=== PATIENT | female | born 1955 | race Caucasian/White ===

== ENCOUNTER 2020-05-19 07:41 | Outpatient (CLI) | payer OTHER, MEDICARE, SELFPAY ==
--- NOTE | ~2020-05-19 | MM_ITS ---
EXAMINATION: MM screening génesis BI w clint HISTORY: Screening mammogram TECHNIQUE: Craniocaudal and mediolateral oblique 3-D tomosynthesis images were obtained and synthetic 2-D images were generated. Bilateral rotated lateral cc views. CAD analysis was submitted and interp reted. COMPARISON: 01/22/2019 diagnostic left digital mammogram and limited left breast ultrasound 01/08/2019, 11/02/2017 bilateral digital screening mammogram examinations BREAST PARENCHYMAL COMPOSITION: The breasts are heterogeneously dense, which may obscure small masses . FINDINGS: Occasional bilateral punctate benign microcalcifications. Stable mild fibroglandular asymme try. There is no evidence of suspicious mass, calcification, or architectural distortion to suggest m alignancy in either breast. There has been no suspicious interval change. IMPRESSION: 1. No mammographic evidence of malignancy. 2. Recommend routine screening mammography in one year. BI-RADS Category 2: Benign finding(s). Reviewed, dictated and finalized at location A.
== END 2020-05-19 07:42 | disposition home or self-care (01) ==
LOC: ANHIMG 07:49
PROVIDERS: PCP Family Medicine; Visit Provider Obstetrics & Gynecology
DX: Z12.31 Encounter for screening mammogram for malignant neoplasm of breast (principal)
CPT/HCPCS: 77063; 77067

== ENCOUNTER 2020-07-17 08:47 | Outpatient (CLI) | payer OTHER, MEDICARE, SELFPAY ==
[2020-07-17 20:00] LABS: SARS-CoV-2 RNA PCR Negative
== END 2020-07-17 08:48 | disposition home or self-care (01) ==
LOC: ANHCOVIDDT 08:48
PROVIDERS: PCP Family Medicine; Visit Provider Internal Medicine Gastroenterology
DX: Z01.812 Encounter for preprocedural laboratory examination (principal); Z20.828 Contact with and (suspected) exposure to other viral communicable diseases
CPT/HCPCS: 87635; C9803; U0003

== ENCOUNTER 2020-07-20 02:09 | Day surgery (SDC) | payer OTHER, MEDICARE, SELFPAY ==
[2020-07-17 09:14] VITALS: BMI 20.5
--- NOTE | 2020-07-20 08:49 | WPDANESEPPF ---
Anes - Initial Pre Proc Eval Procedure: Operation Date: 07/20/20 10:30 Proposed Procedures p Screening Colonoscopy - Jeremias Porras MD Date/Time: 07/20/20 08:49 Surgeon: Jeremias Porras MD Pre Op Diagnosis: neoplasm screening Patient Data Age: 65 Gender: F Height: 1.57 m Weight: 51 kg Allergies Allergy/AdvReac Type Severity Reaction Status Date / Time clindamycin Allergy Intermediate Nausea and Verified 07/20/20 09:30 Vomiting Sulfa (Sulfonamide Allergy Intermediate Nausea and Verified 07/20/20 09:30 Antibiotics) Vomiting Home Medications Medication Instructions Recorded Confirmed Type estradiol-norethindrone acet 1 1 tablet PO DAILY 01/27/20 07/17/20 History mg-0.5 mg tablet fentanyl 12 mcg/hr transdermal 1 patch TRANSDERM Q72H 01/27/20 07/17/20 History patch hydroxychloroquine 200 mg tablet 200 mg PO BID 01/27/20 07/17/20 History peg 3350 240 gram-electrolytes 240 ml PO Q10M #4000 ml 05/28/20 07/14/20 Rx 22.72 gram-6.72 g-5.84 g powdr for soln sodium,potassium,mag sulfates 17.5 480 ml PO .COMPLEX #480 ml 05/29/20 07/14/20 Rx gram-3.13 gram-1.6 gram oral soln calcium citrate-vitamin D3 2 tablet PO DAILY 07/17/20 07/17/20 History [Citracal plus D] econazole 1 applic TOPICAL BID PRN 07/17/20 07/17/20 History loratadine-pseudoephedrine 1 tablet PO DAILY 07/17/20 07/17/20 History [Claritin-D 24 Hour] rizatriptan See Rx Instructions PO .COMPLEX PRN 07/17/20 07/17/20 History temazepam 30 mg PO HS 07/17/20 07/17/20 History trazodone 100 mg PO HS 07/17/20 07/17/20 History triamcinolone acetonide 1 applic TOPICAL BID PRN 07/17/20 07/17/20 History Patient hx anesthesia problems: none Family hx anesthesia problems: none PMFSH Past Medical History Medical History (Updated 07/20/20 @ 08:50 by Ananda Benedict MD) Anemia, unspecified BMI 21.0-21.9, adult Degenerative lumbar disc Dermatitis Elevated cholesterol Elevated vitamin B12 level Insomnia, unspecified Lesion of skin of face Mixed anxiety depressive disorder Mixed connective tissue disease Other migraine, not intractable, without status migrainosus Rheumatoid arthritis Scoliosis, unspecified Screen for colon cancer Seronegative rheumatoid arthritis Skin lesion of face Surgical History Surgical History History of section 1978, 1985, 1990 Hx of abdominoplasty 2006 S/P epidural steroid injection Family History Family History (Updated 07/08/20 @ 10:17 by Kirsten Rubio CMA) Father Hypertension Acute myocardial infarction, Onset Age: 84 Patient's father is Family history of heart disease in male family member before age 55 Mother Family history of diabetes mellitus in first degree relative Family history of congestive heart failure, Onset Age: 84 Lupus Sibling Acute myocardial infarction Heart disease Lupus Other Family history of lupus erythematosus Family history of type 2 diabetes mellitus Social History Social History (Updated 07/08/20 @ 10:18 by Kirsten Rubio CMA) Smoking status: Never smoker Alcohol intake: current Drinks per week: 3 Substance use: current Other substance usage details: CARD FOR Multigig 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
[2020-07-20 09:33] VITALS: BP 143/86; PULSE 106; RESP 16; TEMP 37.1; O2SAT 99; BMI 20.7
[2020-07-20] MEDS: LACTATED RINGERS 1,000 ML 150 ML IV CONT (09:43)
--- NOTE | 2020-07-20 10:42 | PM.HPGS ---
History of Present Illness History of Present Illness Consent: Risks, benefits, and alternatives have been discussed and questions answered. Patient agrees to proceed with procedure. Chief complaint: neoplasm screening Narrative: Santy Sethi is a 65 year old female with last colonoscopy 5 years ago. Review of Systems Constitutional: Constitutional: Denies headache(s) and Denies weakness Eyes: Eyes: Denies blurry vision ENT: Reports Normal hearing present, Denies headache(s) and Denies neck pain Cardiovascular: Cardiovascular: Denies chest pain and Denies dyspnea Respiratory: Respiratory: Denies dyspnea Gastrointestinal: Gastrointestinal: Reports no additional gastrointestinal complaints Genitourinary: Genitourinary: Denies dysuria Musculoskeletal: Musculoskeletal: Denies neck pain Integumentary/Breasts: Skin/Breast: Denies dry skin Neurologic: Reports Normal hearing present, Denies headache(s) and Denies weakness Psychiatric: Psychiatric: Denies anxiety Endocrine: Endocrine: Denies change in body appearance Hematologic/Lymphatic: Hematologic/Lymphatic: Denies easy bleeding Allergic/Immunologic: Allergic/Immunologic: Denies urticaria PMFSH Past Medical History Medical History (Updated 07/20/20 @ 08:50 by Ananda Benedict MD) Anemia, unspecified BMI 21.0-21.9, adult Degenerative lumbar disc Dermatitis Elevated cholesterol Elevated vitamin B12 level Insomnia, unspecified Lesion of skin of face Mixed anxiety depressive disorder Mixed connective tissue disease Other migraine, not intractable, without status migrainosus Rheumatoid arthritis Scoliosis, unspecified Screen for colon cancer Seronegative rheumatoid arthritis Skin lesion of face Surgical History Surgical History History of section 1978, 1985, 1990 Hx of abdominoplasty 2005 S/P epidural steroid injection Family History Family History (Updated 07/08/20 @ 10:17 by Kirsten Rubio CMA) Father Hypertension Acute myocardial infarction, Onset Age: 84 Patient's father is Family history of heart disease in male family member before age 55 Mother Family history of diabetes mellitus in first degree relative Family history of congestive heart failure, Onset Age: 84 Lupus Sibling Acute myocardial infarction Heart disease Lupus Other Family history of lupus erythematosus Family history of type 2 diabetes mellitus Social History Social History (Updated 07/08/20 @ 10:18 by Kirsten Rubio CMA) Smoking status: Never smoker Alcohol intake: current Drinks per week: 3 Substance use: current Other substance usage details: CARD FOR CBD 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 Gender identity (if verbalized by the patient): Female Spiritual care concerns: No Meds Home Medications and Allergies Home Medications Medication Instructions Recorded Confirmed Type estradiol-norethindrone acet 1 1 tablet PO DAILY 01/27/20 07/17/20 History mg-0.5 mg tablet fentanyl 12 mcg/hr transdermal 1 patch TRANSDERM Q72H 01/27/20 07/17/20 History patch hydroxychloroquine 200 mg tablet 200 mg PO BID 01/27/20 07/17/20 History peg 3350 240 gram-electrolytes 240 ml PO Q10M #4000 ml 05/28/20 07/14/20 Rx 22.72 gram-6.72 g-5.84 g powdr for soln sodium,potassium,mag sulfates 17.5 480 ml PO .COMPLEX #480 ml 05/29/20 07/14/20 Rx gram-3.13 gram-1.6 gram oral soln calcium citrate-vitamin D3 2 tablet PO DAILY 07/17/20 07/17/20 History [Citracal plus D] econazole 1 applic TOPICAL BID PRN 07/17/20 07/17/20 History loratadine-pseudoephedrine 1 tablet PO DAILY 07/17/20 07/17/20 History [Claritin-D 24 Hour] rizatriptan See Rx Instructions PO .COMPLEX PRN 07/17/20 07/17/20 History temazepam 30 mg PO HS 07/17/20 07/17/20 History trazodone 100 mg PO HS 07/17/20
[2020-07-20 11:06] VITALS: BP 133/80; PULSE 92; RESP 20; O2SAT 100
[2020-07-20 11:16] VITALS: BP 132/82; PULSE 89; RESP 18; O2SAT 100
[2020-07-20 11:26] VITALS: BP 128/68; PULSE 92; RESP 20; O2SAT 99
== END 2020-07-20 11:40 | disposition home or self-care (01) ==
PROVIDERS: PCP Family Medicine; Visit Provider Internal Medicine Gastroenterology
PROC: 0DJD8ZZ Inspection of Lower Intestinal Tract, Via Natural or Artificial Opening Endoscopic (ICD-10-PCS; CPT 45378; principal; 2020-07-20 10:30)
DX: Z12.11 Encounter for screening for malignant neoplasm of colon (principal); D12.2 Benign neoplasm of ascending colon; K64.8 Other hemorrhoids; M06.00 Rheumatoid arthritis without rheumatoid factor, unspecified site; E78.00 Pure hypercholesterolemia, unspecified; D64.9 Anemia, unspecified; F41.8 Other specified anxiety disorders; L94.8 Other specified localized connective tissue disorders
CPT/HCPCS: 45385; 87635; 88305; C9803; J2704; J7120; U0003

== ENCOUNTER → 2021-03-29 13:21 | Outpatient (CLI) | payer OTHER, MEDICARE, SELFPAY ==
--- NOTE | ~2021-03-29 | US_ITS ---
EXAMINATION: US thyroid DATE: 03/29/2021 13:36 INDICATION: Nontoxic single thyroid nodule. TECHNIQUE: Multiple ultrasound images of the thyroid were obtained. COMPARISON: None. FINDINGS: The right thyroid lobe measures 5.4 x 1.8 x 1.4 cm. The left thyroid lobe measures 3.8 x 1.1 x 1.1 c m. In the right thyroid lobe, there is a 2.3 cm mixed cystic and solid, hypoechoic, [id number]-fbba nodule with smooth margin without echogenic foci (TI-RADS TR3). In the right thyroid lobe, there is a 1.6 cm solid, hypoechoic, [id number]-[id number] nodule with smooth margin without echogenic foci (TR4) IMPRESSION: 1. Multinodular goiter. Ultrasound-guided fine-needle aspiration of the 1.6 cm right thyroid nodule i s recommended. Reviewed, dictated and finalized at location A. IMPRESSION: 1. Multinodular goiter. Ultrasound-guided fine-needle aspiration of the 1.6 cm right thyroid nodule is recommended.
== END ==
PROVIDERS: PCP Family Medicine; Visit Provider Family Medicine
DX: E04.2 Nontoxic multinodular goiter (principal)
CPT/HCPCS: 76536

== ENCOUNTER 2021-04-07 13:00 | Outpatient (CLI) | payer OTHER, MEDICARE, SELFPAY ==
--- NOTE | ~2021-04-07 | US_ITS ---
EXAMINATION: US FNA w image guidance DATE: 04/07/2021 14:08 INDICATION: Nontoxic multinodular goiter. TECHNIQUE: The procedure and its benefits and risks were discussed with the patient. Risks specifically discusse d included bleeding. The patient verbalized understanding of the risks and agreed to proceed. The nec k was prepped and draped in the usual sterile manner. 1% lidocaine was used for local anesthesia. 5 passes were made with a 25G needle into the lesion under ultrasound guidance. There were no immedia te complications. The patient understood to call the ordering physician for results after a week and a half and verbalized that understanding. FINDINGS: Grayscale ultrasound images demonstrate needles advanced into a 16 mm nodule in inferior right thyroi d lobe for biopsy. IMPRESSION: 1. Ultrasound-guided fine needle aspiration of a right thyroid nodule. Reviewed, dictated and finalized at location A.
== END 2021-04-07 13:01 | disposition home or self-care (01) ==
LOC: ANHIMG 13:07
PROVIDERS: PCP Family Medicine; Visit Provider Nurse Practitioner Family
DX: E04.2 Nontoxic multinodular goiter (principal)
CPT/HCPCS: 10005; 88173; 88305

== ENCOUNTER 2021-04-19 13:04 | Outpatient (CLI) | payer OTHER, MEDICARE, SELFPAY ==
--- NOTE | ~2021-04-19 | US_ITS ---
EXAMINATION: US FNA w image guidance DATE: 04/19/2021 13:52 INDICATION: Right thyroid nodule. TECHNIQUE: The procedure and its benefits and risks were discussed with the patient. Risks specifically discusse d included bleeding. The patient verbalized understanding of the risks and agreed to proceed. The nec k was prepped and draped in the usual sterile manner. 1% lidocaine was used for local anesthesia. 5 passes were made with a 25G needle into the lesion under ultrasound guidance. There were no immedia te complications. FINDINGS: Grayscale ultrasound images demonstrate needles advanced into a 1.5 cm hypoechoic nodule in right thy roid lobe for biopsy. IMPRESSION: 1. Ultrasound-guided fine needle aspiration of a right thyroid nodule. Reviewed, dictated and finalized at location A.
== END 2021-04-19 13:05 | disposition home or self-care (01) ==
PROVIDERS: PCP Family Medicine; Visit Provider Nurse Practitioner Family
DX: E04.2 Nontoxic multinodular goiter (principal)
CPT/HCPCS: 10005; 88173; 88305

== ENCOUNTER 2021-04-23 10:26 | Emergency (ER) | payer OTHER, MEDICARE, SELFPAY ==
--- NOTE | ~2021-04-23 | XR_ITS ---
EXAMINATION: XR chest 2V 04/23/2021 11:34 INDICATION: Chest pain. Tachycardia. PROCEDURE: 2 view chest COMPARISON: No prior studies for comparison. FINDINGS: The lungs are clear. The cardiomediastinal silhouette is within normal limits. There are no pleural effusions. There is no pneumothorax suspected. IMPRESSION: 1: NO ACUTE CARDIOPULMONARY DISEASE. Reviewed, dictated and finalized at location A.
--- NOTE | 2021-04-23 10:28 | ECG_ITS ---
Measurements Intervals [place] Rate: 85 P: 32 OH: 135 QRS: 47 QRSD: 89 T: 31 QT: 335 QTc: 399 Interpretive Statements SINUS RHYTHM BASELINE ARTIFACT- I, II, AVR, AVL NORMAL ECG Electronically Signed On 04-23-2021 10:42:21 CDT by Jean-Claude Ny D.O.
[2021-04-23 10:35] VITALS: BP 134/75; PULSE 133; RESP 16; TEMP 37.1; O2SAT 100
[2021-04-23 10:48] LABS: Basophils Absolute Auto 0.1 K/mm3 (0.0-0.1); Basophils Percent Auto 0.8 % (0.2-1.2); Eosinophils Absolute Auto 0.1 K/mm3 (0-0.3); Eosinophils Percent Auto 1.6 % (0-4.4); Hemoglobin 13.1 g/dL (12.0-15.0); Immature Granulocyte Absolute 0.03 K/mm3 (0.00-0.031); Immature Granulocyte Percent A 0.4 % (0-0.5); Lymphocytes Absolute Auto 0.98 K/mm3 (0.9-3.2); Lymphocytes Percent Auto 12.8 % (18.3-44.2); Mean Corpuscular HGB Conc 32.8 g/dl (32-36); Mean Corpuscular Hemoglobin 33.2 pg (26-34); Mean Corpuscular Volume 101.5 fl (80-100); Mean Platelet Volume 9.3 fl (7.4-10.4); Monocytes Absolute Auto 0.6 K/mm3 (0.1-0.6); Monocytes Percent Auto 7.8 % (2.6-8.5); Neutrophils Absolute Auto 5.9 K/mm3 (1.3-6.7); Neutrophils Percent Auto 76.6 % (45.5-73.1); Platelet Count Result 270 k/mm3 (150-375); Red Blood Count 3.94 M/mm3 (4.2-5.4); Red Cell Distribution Width 12.1 % (11.5-14.5); White Blood Count 7.7 K/mm3 (4.5-10.0)
[2021-04-23 11:02] LABS: INR 0.9; Partial Thromboplastin Time 26.9 SECONDS (22.3-36.8); Prothrombin Time 11.9 Seconds (11.1-14.7)
[2021-04-23 11:05] LABS: Anion Gap 8 mmol/L (8-16); Blood Urea Nitrogen 11 mg/dL (7-17); Calcium 9.7 mg/dL (8.4-10.2); Carbon Dioxide 28 mmol/L (22-30); Chloride 102 mmol/L (98-107); Estimated CRCL calculation 62 ml/min; Estimated Glomerular Filt Rate > 60; Glucose 97 mg/dL (65-110); Sodium 138 mmol/L (137-145)
[2021-04-23] MEDS: ASPIRIN 81 MG CHEWABLE TABLET 324 MG PO (11:08)
[2021-04-23 11:17] LABS: Troponin I < 0.012 ng/mL (0.000-0.034)
[2021-04-23 12:50] LABS: D Dimer < 0.22 ug/mL (<0.48)
--- NOTE | 2021-04-23 13:11 | ED.CHESTPAIN ---
HPI - Chest Pain General Chief Complaint: Chest Pain Stated Complaint: CP Time Seen by Provider: 04/23/21 11:26 History of Present Illness HPI narrative: Patient presents with chest pain that started last night around 10 PM. She monitor symptoms all night with became tired and went to bed she woke up and continued to have chest pain symptoms did not resolve she went to come to the ER for evaluation. Pain is on her bilateral chest there are no clear aggravating or alleviating symptoms. Is not associated with shortness of breath diaphoresis nausea or vomiting. She denies any lightheadedness denies any diarrhea fevers or cough. Denies any recent hospitalizations major surgeries or major trauma. Reports longstanding history of tachycardia and is asymptomatic. She also reports she is being worked up as an outpatient for a thyroid nodule which she has been worried about. Related Data Home Medications Medication Instructions Recorded Confirmed estradiol-norethindrone acet 1 1 tablet PO DAILY 01/27/20 03/18/21 mg-0.5 mg tablet fentanyl 12 mcg/hr transdermal 1 patch TRANSDERM Q72H 01/27/20 03/18/21 patch hydroxychloroquine 200 mg tablet 200 mg PO BID 01/27/20 03/18/21 calcium citrate-vitamin D3 2 tablet PO DAILY 07/17/20 03/18/21 [Citracal plus D] loratadine-pseudoephedrine 1 tablet PO DAILY 07/17/20 03/18/21 [Claritin-D 24 Hour] rizatriptan See Rx Instructions PO .COMPLEX PRN 07/17/20 03/18/21 triamcinolone acetonide 1 applic TOPICAL BID PRN 07/17/20 03/18/21 hydrocodone 5 mg-acetaminophen 325 1 tablet PO Q8H PRN 03/18/21 03/18/21 mg tablet Allergies Allergy/AdvReac Type Severity Reaction Status Date / Time clindamycin Allergy Intermediate Nausea and Verified 04/23/21 11:02 Vomiting Sulfa (Sulfonamide Allergy Intermediate Nausea and Verified 04/23/21 11:02 Antibiotics) Vomiting Review of Systems Review of Systems: CONSTITUTIONAL: Denies fever, chills, or sweats. EYES: Denies visual changes, redness, or discharge. ENT: Denies rhinorrhea, congestion, sore throat, or otalgia. CARDIOVASCULAR: Denies palpitations, or edema. RESPIRATORY: Denies cough or dyspnea. GASTROINTESTINAL: Denies abdominal pain, nausea, vomiting, or diarrhea. GENITOURINARY: Denies dysuria or hematuria. SKIN: Denies rash or itching. MUSCULOSKELETAL: Denies back pain, joint pain, or myalgia. NEUROLOGIC: Denies headache, numbness, dizziness, or weakness. PSYCHIATRIC: Denies anxiety or depression. All systems reviewed & are unremarkable except as noted in HPI and below PMFSH Past Medical History Medical History Anemia, unspecified BMI 21.0-21.9, adult Degenerative lumbar disc Dermatitis Elevated cholesterol Elevated vitamin B12 level Insomnia, unspecified Lesion of skin of face Low vitamin D level Mixed anxiety depressive disorder Mixed connective tissue disease Other migraine, not intractable, without status migrainosus Rheumatoid arthritis Scoliosis, unspecified Screen for colon cancer Seronegative rheumatoid arthritis Skin lesion of face Surgical History Surgical History History of section 1978, 1985, 1990 Hx of abdominoplasty 2005 S/P epidural steroid injection Family History Family History Father Hypertension Acute myocardial infarction, Onset Age: 84 Patient's father is Family history of heart disease in male family member before age 55 Mother Family history of diabetes mellitus in first degree relative Family history of congestive heart failure, Onset Age: 84 Lupus Sibling Acute myocardial infarction Heart disease Lupus Other Family history of lupus erythematosus Family history of type 2 diabetes mellitus Social History Social History (Reviewed 04/23/21 @ 13:12 by Bill Garvey
[2021-04-23] MEDS: SODIUM CHLORIDE 0.9% IV 1,000 ML 999 ML IV CONT (13:27)
[2021-04-23 14:45] LABS: Troponin I < 0.012 ng/mL (0.000-0.034)
--- NOTE | 2021-05-05 11:53 | PC.NURSE ---
LATE ENTRY This note is being entered to document information to the patient's record. The following information was omitted on [04/23/21], by [Eva powell RN]. NS infused [id number]
== END 2021-04-23 14:04 | disposition home or self-care (01) ==
PROVIDERS: Emergency Provider Emergency Medicine; PCP Family Medicine
DX: R00.0 Tachycardia, unspecified (principal); R07.9 Chest pain, unspecified; D64.9 Anemia, unspecified; E78.00 Pure hypercholesterolemia, unspecified; M35.1 Other overlap syndromes; M06.00 Rheumatoid arthritis without rheumatoid factor, unspecified site; Z87.891 Personal history of nicotine dependence
CPT/HCPCS: 36415; 71046; 80048; 84484; 85025; 85380; 85610; 85730; 93005; 96361; 96374; 99284; A9270; J0131; J7030

== ENCOUNTER 2021-04-26 17:23 | Outpatient (CLI) | payer OTHER, MEDICARE, SELFPAY ==
--- NOTE | ~2021-04-26 | US_ITS ---
EXAMINATION: US venous doppler UE RT DATE: 04/26/2021 18:01 INDICATION: Right upper extremity pain TECHNIQUE: Grayscale ultrasound images without and with compression and Doppler ultrasound images of the right upper extremity veins were obtained. COMPARISON: None. FINDINGS: The right internal jugular vein, subclavian vein, axillary vein, brachial veins, basilic vein, cephal ic vein, radial vein, and ulnar vein are patent. IMPRESSION: 1. No evidence of deep venous thrombosis. Reviewed, dictated and finalized at location A.
== END 2021-04-26 17:24 | disposition home or self-care (01) ==
LOC: ANHIMG 17:29
PROVIDERS: PCP Family Medicine; Visit Provider Physician Assistant Medical
DX: M79.601 Pain in right arm (principal)
CPT/HCPCS: 93971

== ENCOUNTER 2021-06-04 09:14 | Outpatient (CLI) | payer OTHER, MEDICARE, SELFPAY ==
--- NOTE | ~2021-06-04 | MM_ITS ---
EXAMINATION: MM screening génesis BI w clint HISTORY: Screening TECHNIQUE: Craniocaudal and mediolateral oblique 3-D tomosynthesis images were obtained and synthetic 2-D images were generated. CAD analysis was submitted and interpreted. COMPARISON: Comparison to multiple prior studies sequentially, with oldest reviewed study dated 08/18. BREAST PARENCHYMAL COMPOSITION: The breasts are extremely dense, which lowers the sensitivity of mamm ography FINDINGS: There is no evidence of suspicious mass, calcification, or architectural distortion to sugg est malignancy in either breast. There has been no suspicious interval change. IMPRESSION: 1. No mammographic evidence of malignancy. 2. Recommend routine screening mammography in one year. BI-RADS Category 1: Negative Reviewed, dictated and finalized at location A.
== END 2021-06-04 09:15 | disposition home or self-care (01) ==
LOC: ANHIMG 09:16
PROVIDERS: PCP Family Medicine; Visit Provider Obstetrics & Gynecology
DX: Z12.31 Encounter for screening mammogram for malignant neoplasm of breast (principal)
CPT/HCPCS: 77063; 77067

== ENCOUNTER → 2022-05-24 13:24 | Outpatient (CLI) | payer OTHER, SELFPAY ==
--- NOTE | ~2022-05-24 | MR_ITS ---
EXAMINATION: MR brain/brain stem wo/w con DATE: 05/24/2022 14:17 INDICATION: Headache. TECHNIQUE: Magnetic resonance imaging (MRI) of the brain and brainstem was performed without and with 10 mL MultiHance intravenous contrast. COMPARISON: Brain MRI 07/10/2018 FINDINGS: There are scattered areas of nonspecific increased T2-weighted signal intensity in the cere bral white matter, which is within normal limits for the patient's age. There is no intracranial hemo rrhage, acute infarction, or abnormal intracranial mass lesion. The ventricles are normal in size. Th e paranasal sinuses are clear. The orbits are normal. The mastoid air cells are normal. IMPRESSION: 1. Normal aging brain. Reviewed, dictated and finalized at location A. IMPRESSION: 1. Normal aging brain.
== END ==
PROVIDERS: PCP Family Medicine; Visit Provider Nurse Practitioner Family
DX: G44.009 Cluster headache syndrome, unspecified, not intractable (principal)
CPT/HCPCS: 70553; A9577

== ENCOUNTER 2022-12-28 10:08 | Outpatient (CLI) | payer OTHER, SELFPAY ==
--- NOTE | ~2022-12-28 | MM_ITS ---
EXAMINATION: MM screening génesis BI w clint HISTORY: Screening mammogram TECHNIQUE: Craniocaudal and mediolateral oblique 3-D tomosynthesis images were obtained and synthetic 2-D images were generated. Bilateral rotated lateral CC views. CAD analysis was submitted and interp reted. COMPARISON: 06/04/2021, 05/19/2020 bilateral screening mammogram examinations 01/22/2019 diagnostic left mammogram and limited left breast ultrasound 05/2019 bilateral screening mammogram examinations BREAST PARENCHYMAL COMPOSITION: The breasts are heterogeneously dense, which may obscure small masses . FINDINGS: There is no evidence of suspicious mass, calcification, or architectural distortion to sugg est malignancy in either breast. There has been no suspicious interval change. IMPRESSION: 1. No mammographic evidence of malignancy. 2. Recommend routine screening mammography in one year. BI-RADS Category 1: Negative Reviewed, dictated and finalized at location A.
== END 2022-12-28 10:09 | disposition home or self-care (01) ==
LOC: ANHIMG 10:11
PROVIDERS: PCP Family Medicine; Visit Provider Obstetrics & Gynecology
DX: Z12.31 Encounter for screening mammogram for malignant neoplasm of breast (principal)
CPT/HCPCS: 77063; 77067

== ENCOUNTER → 2023-05-10 08:59 | Outpatient (CLI) | payer OTHER, SELFPAY ==
--- NOTE | ~2023-05-10 | CT_ITS ---
EXAMINATION: CT sinus wo con DATE: 05/10/2023 09:12 INDICATION: Chronic maxillary sinusitis TECHNIQUE: Computed tomography (CT) of the paranasal sinuses was performed without intravenous contra st. The dose-length product was 416.73 mGy-cm. Automated exposure control and iterative reconstructio n technique were employed. COMPARISON: None FINDINGS: Right maxillary sinus disease. No air-fluid levels. No mucoperiosteal reaction. No nasal se ptal deviation. 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 Ostiomeatal units are patent. Mastoids are pneu matized. No midline shift. No ventriculomegaly. IMPRESSION: 1. Minimal right maxillary sinus disease. Reviewed, dictated and finalized at location B.
== END ==
PROVIDERS: PCP Family Medicine; Visit Provider Otolaryngology
DX: J32.0 Chronic maxillary sinusitis (principal)
CPT/HCPCS: 70486

== ENCOUNTER 2024-02-13 16:14 | Outpatient (CLI) | payer OTHER, SELFPAY ==
--- NOTE | ~2024-02-13 | MM_ITS ---
EXAMINATION: MM screening génesis BI w clint HISTORY: Screening TECHNIQUE: Craniocaudal and mediolateral oblique 3-D tomosynthesis images were obtained and synthetic 2-D images were generated. CAD analysis was submitted and interpreted. COMPARISON: Comparison to multiple prior studies sequentially, with oldest reviewed study dated 11/2017. BREAST PARENCHYMAL COMPOSITION: The breasts are heterogeneously dense, which may obscure small masses . FINDINGS: There is no evidence of suspicious mass, calcification, or architectural distortion to sugg est malignancy in either breast. There has been no suspicious interval change. IMPRESSION: 1. No mammographic evidence of malignancy. 2. Recommend routine screening mammography in one year. BI-RADS Category 1: Negative Reviewed, dictated and finalized at location B.
== END 2024-02-13 16:15 | disposition home or self-care (01) ==
LOC: ANHIMG 16:15
PROVIDERS: PCP Family Medicine; Visit Provider Obstetrics & Gynecology
DX: Z12.31 Encounter for screening mammogram for malignant neoplasm of breast (principal)
CPT/HCPCS: 77063; 77067

== ENCOUNTER 2024-03-07 15:26 | Outpatient (CLI) | payer OTHER, SELFPAY ==
--- NOTE | ~2024-03-07 | XR_ITS ---
EXAMINATION: XR chest 2V 03/07/2024 15:37 INDICATION: Cough with throat clearing PROCEDURE: 2 view chest COMPARISON: 04/23/2021 FINDINGS: The lungs are clear. The cardiomediastinal silhouette is within normal limits. There are no pleural effusions. There is no pneumothorax suspected. IMPRESSION: 1: NO ACUTE CARDIOPULMONARY DISEASE. Reviewed, dictated and finalized at location B.
== END 2024-03-07 15:27 ==
LOC: MICIMG 15:26
PROVIDERS: PCP Family Medicine; Visit Provider Family Medicine
DX: R05.9 Cough, unspecified (principal)
CPT/HCPCS: 71046

== ENCOUNTER 2024-07-15 11:30 | Outpatient (CLI) | payer OTHER, SELFPAY ==
--- NOTE | ~2024-07-15 | US_ITS ---
EXAMINATION: US renal BI DATE: 07/15/2024 12:19 INDICATION: Urinary tract infection. Hematuria. TECHNIQUE: Multiple ultrasound grayscale images of the kidneys were obtained. COMPARISON: None. FINDINGS: The right kidney measures 9.6 x 4.5 x 4.5 cm. The left kidney measures 11.2 x 5.9 x 4.9 cm. The kidne ys demonstrate normal echogenicity. There is no hydronephrosis in either kidney. No stones identifie d. The bladder is normal. IMPRESSION: 1. Normal kidneys without hydronephrosis. Reviewed, dictated and finalized at location A. 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
== END 2024-07-15 11:31 | disposition home or self-care (01) ==
LOC: MICIMG 11:31
PROVIDERS: PCP Family Medicine; Visit Provider Nurse Practitioner Adult Health
DX: N39.0 Urinary tract infection, site not specified (principal)
CPT/HCPCS: 76775

== ENCOUNTER 2024-07-15 11:33 | Outpatient (CLI) | payer OTHER, SELFPAY ==
--- NOTE | ~2024-07-15 | US_ITS ---
EXAMINATION: US pelvic complete w TV DATE: 07/15/2024 12:19 INDICATION: Pelvic pain. TECHNIQUE: Multiple transabdominal and transvaginal sonographic images of the pelvis were obtained. COMPARISON: None. FINDINGS: TRANSABDOMINAL ULTRASOUND: The uterus measures 7.1 x 3.3 x 4.6 cm. There is no free fluid in the pelvis. TRANSVAGINAL ULTRASOUND: The endometrial complex measures 3 mm in thickness. There is a 7 mm submucosal fibroid. The right ova ry is not visualized. The left ovary is reportedly absent. IMPRESSION: 1. Right ovary not visualized. Left ovary reportedly absent. 2. Small uterine fibroid. Reviewed, dictated and finalized at location A. 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
== END 2024-07-15 11:34 | disposition home or self-care (01) ==
LOC: MICIMG 11:34
PROVIDERS: PCP Family Medicine; Visit Provider Obstetrics & Gynecology
DX: D25.0 Submucous leiomyoma of uterus (principal); Z90.721 Acquired absence of ovaries, unilateral
CPT/HCPCS: 76830; 76856

== ENCOUNTER 2024-07-15 11:37 | Outpatient (CLI) | payer OTHER, SELFPAY ==
--- NOTE | ~2024-07-15 | XR_ITS ---
Left Hand Technique: PA and lateral views were obtained. Clinical History: Pain Findings: No acute fracture or dislocation is seen. There is severe degenerative change at the third DIP joint and first CMC joint. Soft tissues are unremarkable. Impression: Degenerative changes at the third DIP joint and first CMC joint, as above. Reviewed, dictated and finalized at [facility]. WORKER Impression: Degenerative changes at the third DIP joint and first CMC joint, as above.
== END 2024-07-15 11:38 | disposition home or self-care (01) ==
LOC: MICIMG 11:37
PROVIDERS: PCP Family Medicine; Visit Provider Nurse Practitioner
DX: M18.12 Unilateral primary osteoarthritis of first carpometacarpal joint, left hand (principal); M19.042 Primary osteoarthritis, left hand
CPT/HCPCS: 73120

== ENCOUNTER 2024-10-22 00:32 | Day surgery (SDC) | payer MEDICARE, SELFPAY ==
[2024-10-10 13:57] VITALS: BMI 20.8
--- OUTSIDE RECORDS SUMMARY | 2024-10-22 00:35 | XMS_ITS | Encounter Summary ---
Author Organization [employer] Address [address] [place] [address] Care Team Providers Care Studio Engineer Name Role Phone [facility], External Provider Primary Care Provider U samailable Encounter Details Date Type Department Care Team (Latest Contact Info) Description 03/31/2006 Outpatient Historical HIS [facility] Bennett, Geovanny Estevez MD [address] 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 [address] PCP - General 06/20/17 documented as of this encounter
--- OUTSIDE RECORDS SUMMARY | 2024-10-22 00:35 | XMS_ITS | Clinical Summary ---
Author Organization [facility] Address [address] [facility] [place] [address] Phone Care Team Providers Care Aquatics Assistant Department Head Name Role Phone [facility], External Provider Primary Care Provider U navailable Family History Medical History Relation Name Comments Breast Cancer Maternal Aunt Ovarian Cancer Neg Hx Relation Name Status Comments Maternal Aunt Social History Tobacco Use Types Packs/Day Years Used Date Smoking Tobacco: Never Assessed Comments Unknown Sex and Gender Information Value Date Recorded Sex Assigned at Not on file 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 Gender Identity Not on file Sexual Orientation Not on file Plan of Treatment Health Maintenance Due Date Last Done Comments DTAP/TDAP/TD VACCINES (1 - Tdap) 1976 COLORECTAL SCREENING 2002 Colorectal Cancer Screening 2002 FIT-DNA Q 3 years 2002 FIT/FOBT Q 1 year 2002 Flex Sig/CT Colonography Q 5 years 2002 PNEUMOCOCCAL VACCINE 50+ YEA RS (1 of 1 - PCV) 2007 ZOSTER VACCINE (1 of 2) 2007 BREAST CANCER SCREENING 06/07/2011 06/07/20 10, 05/21/2009, 05/14/2008 OSTEOPOROSIS SCREENING 2022 INFLUENZA VACCINE (#1) 2024 RSV VACCINE (60+ or ) (1 - 1-dose 75+ series) 2032 Procedures Procedure Name Priority Date/Time Associated Diagnosis Comments MAMMO SCREEN BILAT W OR WO CAD Routine 06/07/2010 2:36 PM GAS WORKER Other screening mammogram from Last 3 Months or Most Recently Relevant to Health Maintenance Results * MAMMO DIGITAL SCREEN BILAT (06/07/2010 2:36 PM GAS WORKER) Anatomical Region Laterality Modality Breast Bilateral Mammography Narrative 06/08/2010 9:32 AM GAS WORKER DIGITAL SCREENING MAMMOGRAM WITH COMPUTER-ASSISTED DIAGNOSIS 06/07/2010 CLINICAL HISTORY: Annual screening study. FINDINGS: The breasts were imaged with digital mammographic technique. The breast tissue is heterogeneously dense bilaterally. This lowers the sensitivity of mammography. No significant mass, malignant calcification or architectural distortion is noted. The CAD system does not highlight any suspicious areas. SUMMARY: No mammographic evidence of malignancy. There has been no significant change from previous studies of 05/21/2009 and 05/14/2008. RECOMMENDATIONS: Bilateral yearly screening mammogram is recommended. OVERALL ASSESSMENT: BIRADS category 1 - Negative. Procedure Note Lisa Diego MD - 06/08/2010 DIGITAL SCREENING MAMMOGRAM WITH COMPUTER-ASSISTED DIAGNOSIS 06/07/2010 CLINICAL HISTORY: Annual screening study. FINDINGS: The breasts were imaged with digital mammographic technique. Thebreast tissue is heterogeneously dense bilaterally. This lowers thesensitivity of mammography. No significant mass, malignant calcificationor architectural distortion is noted. The CAD system does not highlight any suspicious areas. SUMMARY: No mammographic evidence of malignancy. There has been no significant change from previous studies of 05/21/2009nd 05/14/2008. RECOMMENDATIONS: Bilateral yearly screening mammogram is recommended. OVERALL ASSESSMENT: BIRADS category 1 - Negative. Geovanny Bennett MD MAMMO ORDERABLES Final Resul t from Last 3 Months or Most Recently Relevant to Health Maintenance Insurance [employer] BLUE ACCESS/TRUE BLUE PPO Care Teams Aquatics Assistant Department Head Relationship Specialty Start Date End Date [facility], External Provider [address] [place] [address] PCP - General 06/20/17
--- OUTSIDE RECORDS SUMMARY | 2024-10-22 00:35 | XMS_ITS | Encounter Summary ---
Author Organization [facility] Healthcare Address [facility] [place] [address] Care Team Providers Care Insurance Licensing Supervisor Name Role Phone Juan Salcido MD Primary Care Provider + [phone] Sung Forrest RN Unavailable Unavailabl e Nathalia Julian MD Unavailable Geo Tellez MD Unavailable [phone] Encounter Details Date Type Department Care Team (Late st Contact Info) Description 07/14/2023 Telephone [facility] [address] [place] [address] Jaimie Xie, RN Social History Tobacco Use Types Packs/Day Years Used Date Smoking Tobacco: Never Smokeless Tobacco: Never AUDIT-C Answer Date Recorded Q1: How often do you have a drink containing alc ohol? 2-3 times a week 06/10/2021 Q2: How many drinks containi ng alcohol do you have on a typical day when you are drinking? 1 or 2 06/10/2021 Q3: How often do you have si x or more drinks on one occasion? 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 Author BH-Pain Behavioral Health Improving( 10:42 AM CDT) No Sung Forrest, RN Note: Describe how unrelieved pain will be managed -Pain Behavioral Health Improving( 10:42 AM CDT) No Sung Forrest, RN Note: Pt would like to exercise on a regular basis with minimal pain and fatigue. documented as of this encounter Visit Diagnoses Not on filedocumented in this encounter Care Teams Insurance Licensing Supervisor Relationship Specialty Start Date End Date Juan Salcido MD PCP - General 11/21/16 Sung Forrest, RN Registered Nurse 07/06/17 [place] [address] [facility] [address] [place] [address] Consulting Physician Rheumatology 01/05/18 Geo Tellez MD [address] [place] [address] [address] [place] [address] Consulting Physician Anesthesiology 03/06/24 documented as of this encounter
--- OUTSIDE RECORDS SUMMARY | 2024-10-22 00:35 | XMS_ITS | Encounter Summary ---
Author Organization [facility] Address [address] [place] [address] Care Team Providers Care Roll Skinner Name Role Phone [facility], External Provider Primary Care Provider U samailable Encounter Details Date Type Department Care Team (Latest Contact Info) Description 05/10/2007 Outpatient Historical HIS [facility] Bennett, Geovanny Estevez MD [address] 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
--- OUTSIDE RECORDS SUMMARY | 2024-10-22 00:35 | XMS_ITS | Clinical Summary ---
Author Organization [facility] Address [address] [place] [address] Care Team Providers Care Labeling Associate Name Role Phone Dana oLo ENTRY LEVEL MANAGEMENT Primary Care Provider [phone] Allergies Active Allergy Reactions Criticality Noted Date Comments Clindamycin Nausea and Vomiting,Rash Medium 07/06/2017 Misc. Sulfonamide Containing Compounds Rash Medium 07/06/2017 Sunburn like rash Sulfa Antibiotics Rash Medium 10/25/2018 Sulfamethoxazole-Trimet hoprim Rash Low 12/22/2022 Medications Calcium Carb-Cholecalcife rol (CALCIUM CARBONATE-VITAMIN D3 OR) Take 2 tablets by mouth daily. Active Milk Thistle 500 MG Cap Take 525 mg by mouth 2 (two) times daily. Active traZODone (DESYREL) 100 MG tablet Take 1 tablet (100 mg total) by mouth nightly at bedtime. 12/20/19 23 Active TURMERIC OR Take 1,000 mg by mouth daily. Active Zinc 50 MG Cap Take 50 mg by mouth daily. Active vitamin D3 (CHOLECALCIFEROL) 125 mcg Tab Take 1 tablet (5,000 Units total) by mouth daily. Active clobetasol (TEMOVATE) 0.05 % cream Apply topically as needed. 05/19/20 22 Active hydroxychloroquin e (PLAQUENIL) 200 MG tablet Take 1 tablet (200 mg total) by mouth 2 (two) times daily. Active aspirin-acetamino phen-caffeine (EXCEDRIN EXTRA STRENGTH) 250-250-65 MG tablet as needed. Active zolpidem (AMBIEN) 5 MG tablet Take 1 tablet (5 mg total) by mouth nightly at bedtime. 05/13/20 23 Active spironolactone (ALDACTONE) 100 MG tablet Take 1 tablet (100 mg total) by mouth daily. Active HYDROcodone-aceta minophen (NORCO) 5-325 MG tablet Take 1 tablet by mouth 2 (two) times daily as needed. Active Estradiol-Norethi ndrone Acet 0.5-0.1 MG Tab Take 1 tablet by mouth daily. 03/16/20 23 Active rimegepant (NURTEC) 75 MG disintegrating tabletIndications :Migraine without aura, not intractable, without status migrainosus Take 1 tablet (75 mg total) by mouth as needed. Max of 1 tablet (75 mg) in 24 hours. 8 tablet 11 03/21/20 24 Active erenumab-aooe (AIMOVIG) 70 mg/mL injection (autoinjector)Ind ications:Chronic migraine w/o aura w/o status migrainosus, not intractable ADMINISTER 1 ML UNDER THE SKIN EVERY 30 DAYS 1 mL 6 05/21/20 24 Active topiramate (TOPAMAX) 25 MG tabletIndications :Migraine without aura, not intractable, without status migrainosus TAKE 1 TABLET(25 MG) BY MOUTH TWICE DAILY 60 tablet 11 08/12/19 25 Active PREVIDENT 5000 BOOSTER PLUS 1.1 % Paste BRUSH TEETH DIRECTED 07/18/202024 Discontinued( Pt. elected to discontinue med) zaleplon (SONATA) 10 MG capsule Take 1 capsule (10 mg total) by mouth nightly at bedtime. 2024 Discontinued( Pt. elected to discontinue med) cetirizine-pseudo ephedrine ER (ZYRTEC-D) 5mg-120mg 12 hr tablet Take 1 tablet by mouth daily. 2024 Discontinued( Pt. elected to discontinue med) topiramate (TOPAMAX) 25 MG tablet Take 1 tablet (25 mg total) by mouth 2 (two) times daily. 04/19/20 22 2024 Discontinued( Pt. elected to discontinue med) naloxone (NARCAN) 4 MG/0.1ML nasal spray 1 spray by Nasal route. 04/07/20 23 03/05/ 2025 Discontinued( Pt. elected to discontinue med) vitamin B-12 (CYANOCOBALAMIN) 100 MCG tablet Take 0.5 tablets (50 mcg total) by mouth daily. 2024 Discontinued( Pt. elected to discontinue med) omeprazole (PRILOSEC) 20 MG capsule Take 1 capsule (20 mg total) by mouth daily. 07/10/20 23 2024 Discontinued( Pt. elected to discontinue med) Active Problems Problem Noted Date Diagnosed Date Chronic migraine without aura, not intractable 0 12/22/2022 Encounters Date Type Department Care Team Description 10/02/2024 8:00 AM CONSULTING PROJECT DIRECTOR Office Visit [facility] - [address], [address] [place] [address] [phone] Inocente Hall MD Botox (Migraines 155units/) 10/02/2024 Scan HEALTH INFO SRVCS Scanned, [facility] 10/02/2024 Travel 08/14/2024 Orders Only [facility] - [address], [address] [place] [address] [phone] Inocente Hall MD from Last 3 Months Immunizations Name Administration Dates Next Due Influenza (Generic) 06/04/2020,05/10/2017 Influenza Adult (Generic) 05/23/2022,,05/23/2019,2017 PFIZER COVID-19 (ORIGINAL FORMULATION, PURPLE CAP) mRNA, LNP-S, PF, 30 MCG/0.3 ML DOSE 06/12/2021 Pneumococcal (Prevnar 13) 09/16/2021 Social History Tobacco Use Types Packs/Day Years Used Date Smoking Tobacco: Never Smokeless Tobacco: Never Tobacco Cessation:Counseling Given: No Alcohol Use Standard Drinks/Week Comments Yes 0 (1 standard drink = 0.6 oz pur e alcohol) PHQ-2 Answer Date Recorded Patient Health Questionnaire-2 Score 0 03/27/2024 Comments Unknown Sex and Gender Information Value Date Recorded Sex Assigned at Female 03/26/2024 12:57 PM CDT Legal Sex Female 2:37 PM CDT Gender Identity Female 03/26/2024 12:57 PM CDT Sexual Orientation Not on file Last Filed Vital Signs Vital Sign Reading Time Taken Comments Blood Pressure 98/59 10/02/2024 8:23 AM CONSULTING PROJECT DIRECTOR Pulse 85 10/02/2024 8:23 AM CONSULTING PROJECT DIRECTOR Temperature 37.3 C (99.2 F) 10/02/2024 8:23 AM CONSULTING PROJECT DIRECTOR Respiratory Rate 17 05/31/2023 1:51 PM CDT Oxygen Saturation 94% 10/02/2024 8:23 AM CONSULTING PROJECT DIRECTOR Inhaled Oxygen Concentration - - Weight 51.3 kg (113 lb) 10/02/2024 8:23 AM CONSULTING PROJECT DIRECTOR Height 154.9 cm (5' 1 ) 10/02/2024 8:23 AM CONSULTING PROJECT DIRECTOR Body Mass Index 21.35 10/02/2024 8:23 AM CONSULTING PROJECT DIRECTOR Plan of Treatment Upcoming Encounters Date Type Department Care Team (Late st Contact Info) Description 12/26/2024 10:00 AM CDT Office Visit [facility] - [facility] [address] [facility], [address] [place] [address] Inocente Hall MD [address] [place] [address] Health Maintenance Due Date Last Done Comments Colorectal Cancer Screening Colonoscopy (10 Years) 1957 Hepatitis C 1975 DTaP, Tdap and Td Vaccines (1 - Tdap) 1976 Mammogram Screening 1997 Zoster Vaccines (1 of 2) 2007 RSV Immunization or 60+ Years (1 - Risk 60-74 years 1-dose series) 2017 Annual Medicare Wellness Visit 2022 Dexa Scan (General) 2022 Pneumococcal Vaccine: 65+ Years (2 of 2 - PPSV23 or PCV20) 09/16/2022 09/16/2021 COVID-19 Vaccine ( - season) 2024 05/23/2022, 06/12/2021, 10/06/2020 Influenza Adult (#1) 2024 05/23/2022, 05/24/2021, 06/04/2020, Additional history exists PHQ-2 (Physician [place]) 07/31/2024 03/27/2024 Meningococcal B Vaccine Aged Out No l onger eligible based on patient's age to complete this topic Meningococcal Vaccine Aged Out No giuliana maria del rosario eligible based on patient's age to complete this topic RSV Immunizations Under 20 Months Aged Out No longer eligible based on patient's age to complete this topic Insurance MEDICARE [facility] Care Teams Labeling Associate Relationship Specialty Start Date End Date Dana Loo NP [address] [place] [address] PCP - General Nurse Practitioner Family 11/14/22
--- OUTSIDE RECORDS SUMMARY | 2024-10-22 00:35 | XMS_ITS | Referral Summary ---
Author Organization [facility] Address [address] [place] [address] Care Team Providers Care Combat Systems Operator Mine Warfare Name Role Phone Juan Salcido MD Primary Care Provider [phone] Sung Forrest RN Unavailable Unavailabl e Nathalia Julian MD Unavailable Geo Tellez MD Unavailable [phone] Encounters Date Type Department Care Team Description 10/16/2024 10:00 AM CDT - 10/16/2024 11:59 PM CDT Hospital Encounter [facility] [address] [place] [id number] Lumbar pain; Other idiopathic scoliosis, lumbar region Discharge Disposition: Discharge to home or self care 10/16/2024 10:20 AM CDT Office Visit [facility] Orthopaedic Surgery [address] [place] [address] for Advanced Medicine 6th [place] [address] [place] [address] Tip Bolanos MD Lumbar radiculopathy (Primary Dx); Lumbar pain; Other idiopathic scoliosis, lumbar region 10/10/2024 Telephone [facility] [address] [facility] [address] [place] [address] Geo Tellez MD 09/03/2024 11:00 AM ALL AROUND PATTERNMAKER - 09/03/2024 11:59 PM ALL AROUND PATTERNMAKER Hospital Encounter [facility] [address] [facility] [address] [place] [address] Mague Quintero NP supervisor intermediates (current) use of opiate analgesic (Primary Dx); Other idiopathic scoliosis, lumbar region; Lupus arthritis (HCC); Lumbar facet arthropathy Discharge Disposition: Discharge to home or self care from Last 3 Months Allergies Active Allergy Reactions Criticality Noted Date Comments Clindamycin Nausea & Vomiting Low 07/06/2017 Sulfa (Sulfonamide Antibiotics) Rash Medium 07/06/2017 Sunburn like rash Medications traZODone (DESYREL) 100 mg tabletIndication s:to help sleep Take 1 tablet (100 mg total) by mouth nightly Active hydroxychloroqui ne (PLAQUENIL) 200 mg tablet TAKE 1 TABLET BY MOUTH TWICE DAILY 60 tablet 04/26/20 18 Active Additional Information Patient taking differently: 200 mg oral 2 times daily, Indications: Rheumatoid Arthritis, arthritis pain, Informant: Self, Reported on 06/15/2022 clobetasoL (TEMOVATE) 0.05 % creamIndications :Rash on knees/elbows Apply 1 application topically 3 (three) times a day as needed 05/03/20 21 Active zinc 50 mg tablet Take 50 mg by mouth every morning Active TURMERIC ORALIndications: arthritis Take 1,000 mg by mouth 2 (two) times a day Active calcium carbonate/vitami n D3 (CALTRATE 600 PLUS D ORAL) Take 2 tablets by mouth every morning Active cholecalciferol (VITAMIN D-3) 5,000 unit tabletIndication s:Prevention of Vitamin D Deficiency Take 1 tablet (5,000 Units total) by mouth every morning Active MILK THISTLE ORALIndications: to protect liver Take 525 mg by mouth 2 (two) times a day Active topiramate (TOPAMAX) 25 mg tablet Take 2 tablets (50 mg total) by mouth daily 04/19/20 22 Active spironolactone (ALDACTONE) 100 mg tablet Take 1 tablet (100 mg total) by mouth daily 02/23/20 23 Active Aimovig Autoinjector 70 mg/mL auto-injector subcutaneous injection ADMINISTER 1 ML UNDER THE SKIN EVERY 30 DAYS Active HYDROcodone-acet aminophen (NORCO) 5-325 mg per tabletIndication s:Pain Take 1 tablet by mouth 2 (two) times a day as needed for pain 60 tablet 09/16/19 25 Active HYDROcodone-acet aminophen (NORCO) 5-325 mg per tabletIndication s:Pain Take 1 tablet by mouth 2 (two) times a day as needed for pain 60 tablet 10/15/19 25 025 Active HYDROcodone-acet aminophen (NORCO) 5-325 mg per tabletIndication s:Pain Take 1 tablet by mouth 2 (two) times a day as needed for pain 60 tablet 11/16/[address] (PROTONIX) 20 mg EC tablet TAKE 1 TABLET BY MOUTH TWICE DAILY ON AN EMPTY STOMACH. DO NOT EAT OR DRINK ANYTHING FOR 20 MINUTES AFTER EACH DOSE 10/11/19 25 Active Wixela Inhub 250-50 mcg/dose diskus inhaler USE 1 INHALATION BY MOUTH TWICE DAILY 08/27/19 25 Active ibuprofen (ADVIL,MOTRIN) 600 mg tablet TAKE 1 TABLET BY MOUTH EVERY 6 TO 8 HOURS NEEDED 09/10/19 25 Active zolpidem (AMBIEN) 5 mg tablet Take 1 tablet (5 mg total) by mouth nightly at bedtime Active estradiol-noreth indrone (ACTIVELLA) 0.5-0.1 mg per tablet Take 1 tablet by mouth daily 09/16/19 25 Active naloxone (NARCAN) 4 mg/actuation spray,non-aeroso lIndications:Opi ate-Induced Respiratory Depression,Opioi d Toxicity Administer 1 spray into affected nostril(s) as needed for opioid reversal or respiratory depression 1 each 04/07/20 23 025 Discontin ued(Patie nt Reported) pantoprazole DR (PROTONIX) 40 mg EC tablet Take 1 tablet (40 mg total) by mouth 2 (two) times a day 025 Discontin ued(Patie nt Reported) Active Problems Problem Noted Date Diagnosed Date Lumbar facet arthropathy 08/24/2023 Chronic migraine without aura, not intractable 0 12/22/2022 Papillary thyroid carcinoma 06/29/2022 Thyroid nodule 05/31/2021 Multiple thyroid nodules 05/13/2021 Overview (06/01/2021): Added automatically from request for surgery [id number] Lupus arthritis 03/25/2019 DELMER positive 06/12/2018 longterm (current) use of opiate analgesic 11/28 Assessment & Plan (02/26/2018 6:03 PM CDT): Will continue to monitor w/ routine labs Assessment & Plan (12/08/2017 10:42 AM CDT): Will continue to monitor w/ routine labs 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 However, her testing on more sensitive and specific AVISE testing in 12/15 showed +b2gp1 and equivocal TGO. Her right hand/wrist us showed mild/moderate synovial thickening/effusion w/ a possible erosion of the lunate. However, her xrays were all negative for any evidence of erosive changes. Discussed w/ her likely seronegative RA vs. Seronegative spondyloarthropathy. She is on HCQ bid and mobic. She is tolerating her medications. She notes improvement in her joint pain and stiffness since starting the HCQ. Pt is to continue current regimen. I will send in a 30-day rx to the local pharmacy for the HCQ and she will call our office for contact information for her mail order pharmacy. Routine labs today Follow up in 3 mo, sooner if needed Assessment & Plan (12/08/2017 12:24 PM CDT): Discussed w/ patient and the results of her recent work up. AVISE showed +b2gp1 IgM and TGO was equivocal. This positive serologies indicate that there is an increased risk for developing clot. Thus, I instructed pt on purposeful fidgeting exercises and the use of a baby ASA prior to flights and long car rides. Her right hand/wrist us showed mild/moderate synovial thickening/effusion w/ a possible erosion of the lunate. However, her xrays were all negative for any evidence of erosive changes. She is likely a seronegative RA vs. Spa. Discussed w/ patient and the goal of medical treatment in patients w/ inflammatory arthritis is to achieve a state of low disease activity and, if possible, a state of remission, in order to minimize structural damage and improve functional status. Given her diagnostic and clinical findings, suggested starting HCQ in addition to the daily NSAID she is already taking. Patient to start HCQ BID. Discussed SE including but not limited to dizziness, bloating and in rare cases retinal toxicity. Retinal toxicity is rare and occurs in less than 1% of people taking HCQ. It takes being on HCQ for five years before there is a small risk of retinal toxicity. It is encouraged to have routine eye exams while on this medication. Gave her samples of Vimovo to try. She is taking meloxicam daily and reports GERD-sx and increased use of PPIs. Advised her not to take meloxiam or additional ppis while she is taking the vimovo. Will also send pennsaid to [place] [facility] as she says this also helps. She had serologies done in 07/2017 elsewhere which showed: +HANK, dsDNA, and +ACCOUNTS PAYABLES CLERK. However, these were negative on the AVISE. Discussed we will monitor her labs for changes in her serologies. Follow up in 8 weeks, sooner if needed Pt seen w/ Dr. Julian Assessment & Plan (11/10/2017 12:12 PM CDT): 62 yof w/ multiple joint pain x 2 years and abn labs. Had recent work up which showed +HANK, +dsDNA, and +ACCOUNTS PAYABLES CLERK. She admits to fatigue, dry eyes, dry mouth, and mouth sores. She has pain in her lower back and anterior chest wall. She has a family history of SLE in multiple direct family members. Will evaluate further w/ blood work (w/ AVISE), RIGHT hand/wrist u/s, and xrays. She will follow up in 2-3 weeks to review testing and discuss treatment plan. 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 01/13/2011 05/25/2023 Lumbar radiculopathy 01/13/2011 023 Social History Tobacco Use Types Packs/Day Years Used Date Smoking Tobacco: Never Smokeless Tobacco: Never Tobacco Cessation:Counseling Given: Not Answered AUDIT-C Answer Date Recorded Q1: How often [...] points, staff should administer the PHQ-9) 0 06/06/2024 PHQ-9 Answer Date Recorded PHQ-9 Total Score 2 06/06/2024 Comments No Sex and Gender Information Value Date Recorded Sex Assigned at Not on file Legal Sex Female 9:40 AM ALL AROUND PATTERNMAKER Gender Identity Not on file Sexual Orientation Not on file Last Filed Vital Signs Vital Sign Reading Time Taken Comments Blood Pressure 104/68 09/03/2024 11:12 AM ALL AROUND PATTERNMAKER Pulse 107 09/03/2024 11:12 AM ALL AROUND PATTERNMAKER Temperature 36.3 C (97.4 F) 07/02/2024 1:41 PM ALL AROUND PATTERNMAKER Respiratory Rate 16 09/03/2024 11:12 AM ALL AROUND PATTERNMAKER Oxygen Saturation 97% 09/03/2024 11:12 AM ALL AROUND PATTERNMAKER Inhaled Oxygen Concentration - - Weight 49 kg (108 lb) 07/21/2023 8:06 AM ALL AROUND PATTERNMAKER Height 154.9 cm (5' 1 ) 07/21/2023 8:06 AM ALL AROUND PATTERNMAKER Body Mass Index 20.41 07/21/2023 8:06 AM ALL AROUND PATTERNMAKER Plan of Treatment Not on file Goals Goal Patient Goal Type Associated Problems Recent Progress Patient-Stated? Author -Pain Behavioral Health Improving( 10:42 AM CDT) No Sung Forrest, RN Note: Describe how unrelieved pain will be managed [facility] 10:42 AM CDT) No Sung Forrest, RN Note: Pt would like to exercise on a regular basis with minimal pain and fatigue. Procedures Procedure Name Priority Date/Time Associated Diagnosis Comments XR SCOLIOSIS AP LAT Schedule Routine, Read Routine (OP Routine) 10/16/2024 10:25 AM CDT Lumbar pain Other idiopathic scoliosis, lumbar region from Last 3 Months Results * XR Scoliosis Ap and Lateral (10/16/2024 10:25 AM CDT) Anatomical Region Laterality Modality Spine N/A Computed Radiogr aphy 10/16/2024 10:4 4 AM CDT Impressions 10/16/2024 10:44 AM CDT Unchanged moderate to severe rotatory dextroscoliosis of the thoracal lumbar spine with multilevel degenerative disc disease. Electronically signed by: Georges Hill M.D. Narrative 10/16/2024 10:44 AM CDT XR SCOLIOSIS AP AND LATERAL HISTORY: Scoliosis. FINDINGS: AP and lateral standing projections of the spine and lower extremities are obtained in the EOS system and compared with 10/25/2023. There is unchanged moderate to severe rotatory dextroscoliosis with apex at T12-L1. There is no significant listhesis. There is unchanged mild right coronal truncal imbalance. Sagittal truncal balance is neutral. Unchanged mild right superior pelvic obliquity.. There is moderate to severe multilevel lumbar degenerative disc disease. Vertebral body heights are within normal limits. Procedure Note Georges Hill MD - 10/16/2024 XR SCOLIOSIS AP AND LATERAL HISTORY: Scoliosis. FINDINGS: AP and lateral standing projections of the spine and lower extremities are obtained in the EOS system and compared with 10/25/2023. There is unchanged moderate to severe rotatory dextroscoliosis with apex at T12-L1. There is no significant listhesis. There is unchanged mild right coronal truncal imbalance. Sagittal truncal balance is neutral. Unchanged mild right superior pelvic obliquity.. There is moderate to severe multilevel lumbar degenerative disc disease. Vertebral body heights are within normal limits. IMPRESSION: Unchanged moderate to severe rotatory dextroscoliosis of the thoracal lumbar spine with multilevel degenerative disc disease. Electronically signed by: Georges Hill M.D. Tip Bolanos MD IMG XR PROCEDURES Final Re sult from Last 3 Months Insurance [facility] MEDICARE [facility] CHOICE PLUS MEDICARE MEDICARE MEDICARE MEDICARE Advance Directives For more information, please contact: [phone] Documents on File Type Date Recorded Patient Club Car Attendant Expl anation ADVANCE DIRECTIVE 06/18/2021 10:19 AM [facility] er of Cnc Programmer-Medical Care Teams Combat Systems Operator Mine Warfare Relationship Specialty Start Date End Date Juan Salcido MD PCP - General 11/21/16 Sung Forrest, RN Registered Nurse 07/06/17 [place] [id number] [facility] [address] [place] [address] Consulting Physician Rheumatology 01/05/18 Geo Tellez MD 2 [facility] [address] [address] Consulting Physician Anesthesiology 03/06/24
--- OUTSIDE RECORDS SUMMARY | 2024-10-22 00:35 | XMS_ITS | Clinical Summary ---
Author Organization [facility] Address [address] [place] [address] Care Team Providers Care Autos Disassembler Name Role Phone Juan Salcido MD Primary Care Provider [phone] uSng Forrest RN Unavailable Unavailabl e Nathalia Julian MD Unavailable Geo Tellez MD Unavailable Allergies Active Allergy Reactions Criticality Noted Date [...] (06/01/2021): Added automatically from request for surgery [id number] Lupus arthritis 03/25/2019 DELMER positive 06/12/2018 half-way (current) use of opiate analgesic 11/28 Assessment & Plan (02/26/2018 6:03 PM CDT): Will continue to monitor w/ routine labs Assessment & Plan (12/08/2017 10:42 AM CDT): Will continue to monitor w/ routine labs 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 However, her testing on more sensitive and [...] the vimovo. Will also send pennsaid to [place] [facility] as she says this also helps. She had serologies done in 07/2017 elsewhere which showed: +HANK, dsDNA, and +FOUNTAIN MANAGER. However, these were negative on the AVISE. Discussed we will monitor her labs for changes in her serologies. Follow up in 8 weeks, sooner if needed Pt seen w/ Dr. Julian Assessment & Plan (11/10/2017 12:12 PM CDT): 62 yof w/ multiple joint pain x 2 years and abn labs. Had recent work up which showed +HANK, +dsDNA, and +FOUNTAIN MANAGER. She admits to fatigue, dry eyes, dry [...] sciatica 01/13/2011 05/25/2023 Lumbar radiculopathy 01/13/2011 023 Encounters Date Type Department Care Team Description 10/16/2024 10:20 AM CDT Office Visit [facility] Orthopaedic Surgery [address] [facility] Advanced Medicine 6th [place] [address] [place] [address] Tip Bolanos MD Lumbar radiculopathy (Primary Dx); Lumbar pain; Other idiopathic scoliosis, lumbar region 10/16/2024 10:00 AM CDT - 10/16/2024 11:59 PM CDT Hospital Encounter [facility]) [address] [place] [address] Lumbar pain; Other idiopathic scoliosis, lumbar region Discharge Disposition: Discharge to home or self care 10/10/2024 Telephone [facility] [address] [place] [address], [address] [address] Geo Tellez MD 09/03/2024 11:00 AM SALES ACCOUNT LEADER - 09/03/2024 11:59 PM SALES ACCOUNT LEADER Hospital Encounter [facility] [address] [place] [address], [address] [address] Mague Quintero NP long term care administrator (current) use of opiate analgesic (Primary Dx); Other idiopathic scoliosis, lumbar region; Lupus arthritis (HCC); Lumbar facet arthropathy Discharge Disposition: Discharge to home or self care from Last 3 Months Surgical History Surgery Date Site/Laterality Comments SECTION x3 OVARY SURGERY Left removal ABDOMINOPLASTY Medical History Medical History Date Comments Arthritis Thyroid disease Anemia Osteoarthritis Rheumatoid arthritis (HCC) Migraines Low back pain Allergic rhinitis History of radiation therapy Family History Medical History Relation Name Comments Arthritis Father Diabetes Father Heart disease Father Lupus Father's Sister Arthritis Mother Diabetes Mother Heart disease Mother Cancer Other Lupus Paternal Grandmother Arthritis Sister Scoliosis Sister Anesthesia problems Son PONV Relation Name Status Comments Father Father's Sister Mother Other Paternal Grandmother Sister Son Social History Tobacco Use Types Packs/Day Years [...] on file Legal Sex Female 9:40 AM SALES ACCOUNT LEADER Gender Identity Not on file Sexual Orientation Not on file Obstetrics History Last Filed Vital Signs Vital Sign Reading Time Taken Comments Blood Pressure 104/68 09/03/2024 11:12 AM SALES ACCOUNT LEADER Pulse 107 09/03/2024 11:12 AM SALES ACCOUNT LEADER Temperature 36.3 C (97.4 F) 07/02/2024 1:41 PM SALES ACCOUNT LEADER Respiratory Rate 16 09/03/2024 11:12 AM SALES ACCOUNT LEADER Oxygen Saturation 97% 09/03/2024 11:12 AM SALES ACCOUNT LEADER Inhaled Oxygen Concentration - - Weight 49 kg (108 lb) 07/21/2023 8:06 AM SALES ACCOUNT LEADER Height 154.9 cm (5' 1 ) 07/21/2023 8:06 AM SALES ACCOUNT LEADER Body Mass Index 20.41 07/21/2023 8:06 AM SALES ACCOUNT LEADER Plan of Treatment Health Maintenance Due Date Last Done Comments Colon Cancer Screening-Colonoscopy 1955 Hepatitis C Screening 1957 Osteoporosis Screening-Bone Density Scan 1957 DTaP/Tdap/Td Vaccine (1 - Tdap) 1968 Hepatitis B Screening 1975 Zoster Vaccine (1 of 2) 1976 Breast Cancer Screening-Mammogram 06/07/2011 010 Pneumococcal vaccine 65+ (2 of 2 - PPSV23) 11/11/2021 09/16/2021 Well Visit 65+ 2022 Covid-19 Vaccine (3 - 2023-2 5 season) 2024 06/12/2021, 10/06/2020 Influenza Vaccine (#1) 2024 , 05/24/2021, 06/04/2020, Additional history exists Fall Risk Assessment 07/21/2024 07/21/2023 Depression Screening 06/06/2025 06/06/2024, 06/06/2024, 03/07/2024, Additional history exists Goals Goal Patient Goal Type Associated Problems Recent Progress Patient-Stated? Author -Pain Behavioral Health Improving( 10:42 AM CDT) No Sung Forrest, RN Note: Describe how unrelieved pain will be managed [facility] 10[facility] AM CDT) No [...] Re sult from Last 3 Months Insurance [facility] MEDICARE [facility] CHOICE PLUS MEDICARE MEDICARE MEDICARE MEDICARE Advance Directives For more information, please contact: [phone] Documents on File Type Date Recorded Patient Blood Bank Calendar Control Clerk Expl anation ADVANCE DIRECTIVE 06/18/2021 10:19 AM [facility] er of Teacher Lip Reading-Medical Care Teams Autos Disassembler Relationship Specialty Start Date End Date Juan Salcido MD PCP - General 11/21/16 Sung Forrest, RN Registered Nurse 07/06/17 [place] [address] [facility] [address] [place] [address] Consulting Physician Rheumatology 01/05/18 Geo Tellez MD [address] [place] [address] [address] [place] [id number] Consulting Physician Anesthesiology 03/06/24
--- OUTSIDE RECORDS SUMMARY | 2024-10-22 00:35 | XMS_ITS | Clinical Summary ---
Author Organization [facility] Address [address] [facility] [place] [address] Care Team Providers Care Charge Preparation Technician Name Role Phone Juan Salcido MD Primary Care Provider [phone] Source Comments [facility],non-owned Affiliates and Associated Physician Practices is amultiple site organization consisting of ambulatory clinics and hospital sitesin [place], [place], [place] and [place]. This disclosure is being madepursuant to the Care Everywhere program and may not contain all information available regarding this patient. Last updated 18.[facility] Allergies Active Allergy Reactions Criticality Noted Date Comments Clindamycin Rash,Nausea and/or Vomiting Medium 019 Sulfa Drugs Rash Medium 10/25/2018 Medications * Be aware that medications may not be up to date on this document. Alwaysverify current medications with the patient. Medication Sig Dispensed Refills Start Date End Date Status hydroxychloroquine (PLAQUENIL) 200 MG tablet Take by mouth once daily Active traZODone (DESYREL) 100 MG tablet Take 100 mg by mouth at bedtime Active estradiol-norethindron e (ACTIVELLA) 1-0.5 MG tablet Take 1 tablet by mouth once daily Active HYDROcodone-acetaminop hen (NORCO) 5-325 MG tablet Take 1 tablet by mouth every 4 hours as needed Active fentaNYL (DURAGESIC) 25 MCG/HR patch Apply 1 patch to skin every 3 days Do not apply heat over patch. (12 MCG not 25) Active Active Problems Problem Noted Date Diagnosed Date Multiple thyroid nodules 05/13/2021 Social History Tobacco Use Types Packs/Day Years Used Date Smoking Tobacco: Never Smokeless Tobacco: Never Tobacco Cessation:Counseling Given: No Alcohol Use Standard Drinks/Week Comments Yes 3 (1 standard drink = 0.6 oz pur e alcohol) Sex and Gender Information Value Date Recorded Sex Assigned at Not on file Gender Identity Not on file Sexual Orientation Not on file Last Filed Vital Signs Vital Sign Reading Time Taken Comments Blood Pressure 140/79 05/12/2021 2:10 PM CDT Pulse 91 05/12/2021 2:10 PM CDT Temperature - - Respiratory Rate - - Oxygen Saturation - - Inhaled Oxygen Concentration - - Weight 50.4 kg (111 lb 3.2 oz) 05/12/2021 2:10 P M CDT Height 154.9 cm (5' 1 ) 05/12/2021 2:10 PM CDT Body Mass Index 21.01 05/12/2021 2:10 PM CDT Plan of Treatment Health Maintenance Due Date Last Done Comments BONE DENSITY TESTING 1955 COLOGUARD (AGES 45-75) - COL ON CA SCREENING 1957 COLON MONITORING 1957 COLONOSCOPY - COLON CA SCREENING 1957 CT COLONOGRAPHY - COLON CA SCREENING 1955 Colorectal Cancer Screening 1957 FIT - COLON CA SCREENING 1957 FLEX SIG - COLON CA SCREENING 1957 LIPID TESTING 1957 MEDICARE AWV 12 MONTHS 1957 HEPATITIS C SCREENING 06/22/1975 DTAP/TDAP/TD VACCINES (1 - Tdap) 1976 PNEUMOCOCCAL VACCINE 50+ (1 of 1 - PCV) 2007 ZOSTER VACCINE (1 of 2) 2007 MAMMOGRAM 05/06/2023 05/06/2021 COVID-19 VACCINE (1 - 2023-2 5 season) 2024 INFLUENZA VACCINE (#1) 2024 DEPRESSION SCREENING 07/31/2024 Respiratory Syncytial Virus (RSV) Vaccine Pt: or over 60 yrs (1 - 1-dose 75+ series) 2032 HEPATITIS B VACCINE Aged Out No longe r eligible based on patient's age to complete this topic HIB VACCINE Aged Out No longer eligi ble based on patient's age to complete this topic HPV VACCINE Aged Out No longer eligi ble based on patient's age to complete this topic MENINGOCOCCAL (Group B) VACC INE SHARED DECISION-MAKING Aged Out No longer eligibl e based on patient's age to complete this topic MENINGOCOCCAL GROUPS A/C/Y/W VACCINE Aged Out No longer eligible b ased on patient's age to complete this topic Care Teams Charge Preparation Technician Relationship Specialty Start Date End Date Juan Salcido MD [address] [place] [address] PCP - General 10/25/18
--- OUTSIDE RECORDS SUMMARY | 2024-10-22 00:35 | XMS_ITS | Encounter Summary ---
Author Organization [facility] Address [address] [place] [address] Care Team Providers Care Travel Ticketing Reviewer Name Role Phone [facility] Primary Care Provider U navailable Encounter Details Date Type Department Care Team (Latest Contact Info) Description 05/14/2008 Outpatient Historical [facility] Geovanny Galicia MD [address] [place] [address] [address], [place] [address] Other Screening Mammogram Social History Tobacco Use Types Packs/Day Years Used Date Smoking Tobacco: Never Assessed Comments Unknown Sex and Gender Information Value Date Recorded Sex Assigned at Not on file Legal Sex Female 4:50 AM MARINA PORTER Gender Identity Not on file Sexual Orientation Not on file documented as of this encounter Plan of Treatment Not on file documented as of this encounter Procedures Procedure Name Priority Date/Time Associated Diagnosis Comments MAMMO SCREEN BILAT W OR WO CAD Routine 05/14/2008 10:26 AM CDT documented in this encounter Results * MAMMO DIGITAL SCREEN BILAT (05/14/2008 10:26 AM CDT) Anatomical Region Laterality Modality Breast Bilateral Other 05/14/2008 10:2 6 AM CDT Narrative 05/14/2008 2:31 PM CDT [address] [address] Admit Date: 05/14/2008 SANTY KING Sex: F Admit Prov: GEOVANNY BENNETT Date: 1955 Primary Care Prov: RICHARD WHELAN CMRN: [id number] Room: KAREN N: [id number] IMAGING SERVICES Ordering Prov: GEOVANNY BENNETT Accession Number: [id number] Interpretation BILATERAL DIGITAL MAMMOGRAM WITH COMPUTER-ASSISTED DIAGNOSIS There is moderate density fibroglandular tissue in each breast and the pattern is relatively symmetrical. There is no evidence of a dominant mass, malignant type calcification or other radiographic manifestation of malignancy. No change since 02/01. The CAD system was utilized. IMPRESSION No radiographic evidence of malignancy. Assessment BIRADS: 1-Negative Recommendation: Normal interval follow-up Dictated by: BUD CHANEL Electronically signed by: BUD CHANEL 05/14/2008 14:31 Transcribed: 05/14/2008 14:31 CO Procedure Note Bud Chanel - 05/14/2008 [facility] [address] [place], [place] [address] Admit Date: 05/14/2008 SANTY KING Sex: F Admit Prov: GEOVANNY BENNETT Date:1955 Primary Care Prov: RICHARD WHELAN CMRN: [id number] Room: HAOMayda N: [id number] IMAGING SERVICES Ordering Prov: GEOVANNY BENNETT Interpretation BILATERAL DIGITAL MAMMOGRAM WITH COMPUTER-ASSISTED DIAGNOSIS There is moderate density fibroglandular tissue in each breast andthe pattern is relatively symmetrical. There is no evidence of a dominantmass, malignant type calcification or other radiographic manifestation of malignancy. No change since 02/01. The CAD system was utilized. IMPRESSION No radiographic evidence of malignancy. Assessment BIRADS: 1-Negative Recommendation: Normal interval follow-up Dictated by: BUD CHANEL Electronically signed by: BUD CHANEL 05/14/2008 14:31 Transcribed: 05/14/2008 14:31 CO Geovanny Bennett MD MAMMO ORDERABLES Final Resul t documented in this encounter Visit Diagnoses Diagnosis Other screening mammogram documented in this encounter Care Teams Travel Ticketing Reviewer Relationship Specialty Start Date End Date [facility], External Provider [address] [place] [address] PCP - General 06/20/17 documented as of this encounter
--- OUTSIDE RECORDS SUMMARY | 2024-10-22 00:35 | XMS_ITS ---
Author Organization [facility] Address [address] [place] [address] Care Team Providers Care Heat Treat Furnace Operator Name Role Phone Juan Salcido MD Primary Care Provider [phone] Sung Forrest RN Unavailable Unavailabl Nathalia Rodriguez MD Unavailable Geo Tellez MD Unavailable Active Problems Problem Noted Date Diagnosed Date Lumbar facet arthropathy 08/24/2023 Chronic migraine without aura, not intractable 0 12/22/2022 Papillary thyroid carcinoma 06/29/2022 Thyroid nodule 05/31/2021 Multiple thyroid nodules 05/13/2021 Overview (06/01/2021): Added automatically from request for surgery [id number] 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 However, her testing on more sensitive and [...] the vimovo. Will also send pennsaid to [facility] as she says this also helps. 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 However, these were negative on the AVISE. Discussed we will monitor her labs for changes in her serologies. Follow up in 8 weeks, sooner if needed Pt seen w/ Dr. Julian Assessment & Plan (11/10/2017 12:12 PM CDT): 62 yof w/ multiple joint pain x 2 years and abn labs. 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 She admits to fatigue, dry eyes, dry [...] PA-C Other idiopathic scoliosis, lumbar region 2016 Current Treatment and Therapy Plans No current plan information found. Past Treatment and Therapy Plans No past plan information found. 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
--- OUTSIDE RECORDS SUMMARY | 2024-10-22 00:35 | XMS_ITS | Encounter Summary ---
Author Organization [employer] Address [address] [place] [address] Care Team Providers Care Perinatal Instructor Name Role Phone [facility], External Provider Primary Care Provider U samailkristofer Encounter Details Date Type Department Care Team (Latest Contact Info) Description 02/25/2005 [facility] Geovanny Estevez MD 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
--- OUTSIDE RECORDS SUMMARY | 2024-10-22 00:35 | XMS_ITS | Encounter Summary ---
Author Organization [facility] Address [address] [place] [address] Care Team Providers Care Carbon Cleaner Name Role Phone Brian Ibrahim MD Primary Care Provider [phone] Juan Salcido MD Primary Care Provider [phone] Encounter Details Date Type Department Care Team (Late st Contact Info) Description 07/13/2018 Lab Requisition [facility] [address] [facility] [address] [facility] [place] [id number] Juan Salcido MD [address] [place] [address] Social History Tobacco Use Types Packs/Day Years Used Date Smoking Tobacco: Never Assessed Sex and Gender Information Value Date Recorded Sex Assigned at Not on file Gender Identity Not on file Sexual Orientation Not on file documented as of this encounter Plan of Treatment Not on file documented as of this encounter Procedures Procedure Name Priority Date/Time Associated Diagnosis Comments DERMATOPATHOLOGY Routine 07/11/2018 12:0 0 AM GARDENING MANAGER documented in this encounter Results * DERMATOPATHOLOGY (07/11/2018 12:00 AM GARDENING MANAGER) Case Report Dermatopathology Report Case: [id number] Authorizing Provider: Juan Saclido MD Collected: 07/11/2018 12:00 AM Pathologist: Clara Carter MD Received: 07/13/2018 08:02 AM Specimen: Skin, left thigh 11:35 AM [facility] DERMATOPATHOLOGY LABORATORY Final Diagnosis Specimen A. SKIN, left thigh: BENIGN VERRUCOUS KERATOSIS (L82.1) NOT PRESENT AT SAMPLED MARGIN 11:35 AM [facility] DERMATOPATHOLOGY LABORATORY Clinical History Changing lesion. Check margins. 11:35 AM [facility] DERMATOPATHOLOGY LABORATORY Gross Description Specimen A: Received is one formalin filled container labeled with the patient's name and designated left thigh. The specimen consists of a shave biopsy measuring [id number]. The margin is inked green. Jar 0. 11:35 AM [facility] DERMATOPATHOLOGY LABORATORY Microscopic Description Specimen A. SKIN, left thigh: Sections show hyperkeratosis, papillomatosis, hypergranulosis, and acanthosis. These histological findings can be seen in a verruca vulgaris or a seborrheic keratosis. This lesion is not present at the sampled margin of the specimen. 11:35 AM [facility] DERMATOPATHOLOGY LABORATORY Disclaimer An external and internal positive and negative controls are appropriate for the histochemical, immunohistochemical and immunofluorescence stain(s) in this case (if any), except where stated explicitly. The performance characteristics of the stain(s) cited in this report were developed and its performance characteristic determined by the Dermatopathology Laboratory at [facility]. These tests need not be, and therefore are not, approved by the [place] Food and Drug Administration. The tests are used for clinical purposes. Billing Codes Specimen Charges Stain Charges 38245 1 8 11:35 AM [facility] DERMATOPATHOLOGY LABORATORY Embedded Images 11:35 AM [facility] DERMATOPATHOLOGY LABORATORY Pathology/Cytolog y TISSUE SPECIMEN FROM SKIN / Unknown 07/11/2018 07/13/2018 8:02 AM [facility] Juan Salcido MD LAB - PATHOLOGY/CYTO LOGY ORDERABLES DERMATOPATHOLOGY LABORATORY [facility] - Department of Dermatology [address] [place] [address], [address] Floor Lab [address] [phone] documented in this encounter Visit Diagnoses Not on filedocumented in this encounter Care Teams Carbon Cleaner Relationship Specialty Start Date End Date Brian Ibrahim MD [address], [place] [id number] PCP - General 07/12/18 10/24/18 uJan Salcido MD [address] [place] [address] PCP - General 10/25/18 documented as of this encounter
[2024-10-22 07:58] VITALS: BP 116/68; PULSE 92; RESP 18; TEMP 36.1; O2SAT 97; BMI 21.0
[2024-10-22] MEDS: LACTATED RINGERS 1,000 ML 150 ML IV CONT (08:04)
--- NOTE | 2024-10-22 08:17 | WPDANESEPPF ---
Anes - Initial Pre Proc Eval Procedure: Operation Date: 10/22/24 09:00 Proposed Procedures p Esophagogastroduodenoscopy EGD - Jeremias Porras MD Date/Time: 10/22/24 08:17 Surgeon: Jeremias Porras MD Pre Op Diagnosis: gastro-esophageal reflux disease Patient Data Age: 69 Gender: F Height: 1.55 m Weight: 50.6 kg Last Vital Signs Temp 36.1 C L 10/22/24 07:58 Pulse 92 10/22/24 07:58 Resp 18 10/22/24 07:58 BP 116/68 10/22/24 07:58 Pulse Ox 97 10/22/24 07:58 O2 Del Method Room Air 10/22/24 07:58 Allergies Allergy/AdvReac Type Severity Reaction Status Date / Time clindamycin Allergy Intermediate Nausea and Verified 10/22/24 07:56 Vomiting Sulfa (Sulfonamide Allergy Intermediate Nausea and Verified 10/22/24 07:56 Antibiotics) Vomiting Home Medications ?Medication ?Instructions ?Recorded ?Confirmed ?Type estradiol-norethindrone acet 1 1 tablet PO DAILY 01/27/20 10/22/24 History mg-0.5 mg tablet (Activella) hydroxychloroquine 200 mg tablet 200 mg PO BID 01/27/20 10/22/24 History hydrocodone 5 mg-acetaminophen 325 1 tablet PO Q8H PRN pain 03/18/21 10/22/24 History mg tablet cholecalciferol (vitamin D3) 50 50 mcg PO DAILY 09/16/21 10/22/24 History mcg (2,000 unit) capsule fluticasone propionate 50 2 spray intranasal DAILY #16 mL 05/01/23 10/15/24 Rx mcg/actuation nasal spray,suspension (Flonase Allergy Relief) onabotulinumtoxinA 100 unit 5 unit IM ONCE 08/17/23 10/22/24 History solution for injection (Botox) rimegepant 75 mg disintegrating 75 mg PO ONCE PRN migraine headache 04/09/24 10/15/24 History tablet (Nurtec ODT) clobetasol-emollient 0.05 % 1 applic topical .prn 05/21/24 10/15/24 History topical cream topiramate 25 mg tablet 25 mg PO DAILY 07/16/24 10/22/24 History zolpidem 5 mg tablet 5 mg PO QHS #30 tabs 09/07/24 10/22/24 Rx pantoprazole 40 mg tablet,delayed 40 mg PO BID laryngopharyngeal 09/19/24 10/22/24 Rx release reflux #60 tabs fluticasone 250 mcg-salmeterol 50 1 inh inhalation BID 10/04/24 10/22/24 History mcg/dose blistr powdr for inhalation (Wixela Inhub) cetirizine 10 mg tablet (Zyrtec) 10 mg PO DAILY PRN allergy 10/11/24 10/22/24 Rx symptoms #30 tabs trazodone 100 mg tablet 100 mg PO QHS PRN insomnia #90 tabs 10/11/24 10/22/24 Rx Patient hx anesthesia problems: none Family hx anesthesia problems: none Results Review: All pre-operative results and documents have been reviewed as part of the pre-operative evaluation. [facility] Past Medical History Medical History Need for vaccination for pneumococcus Chronic allergic bronchitis Acute bacterial bronchitis Cluster headaches Memory change Family history of skin cancer Hematuria Hypokalemia Hypokalemia Throat clearing PND (post-nasal drip) Chronic ethmoidal sinusitis Chronic sinusitis of both maxillary sinuses Congestion of nasal sinus Post-nasal drip Dyspareunia Pelvic floor dysfunction Recurrent UTI Nutritional deficiency Cough in adult Protracted bacterial bronchitis Abnormal thyroid biopsy Low vitamin D level Mixed anxiety depressive disorder Screen for colon cancer Rheumatoid arthritis Skin lesion of face Dermatitis Lesion of skin of face Anemia, unspecified Degenerative lumbar disc Elevated cholesterol Elevated vitamin B12 level Insomnia, unspecified Mixed connective tissue disease Other migraine, not intractable, without status migrainosus Scoliosis, unspecified Seronegative rheumatoid arthritis Surgical History Surgical History History of thyroidectomy S/P epidural steroid injection Hx of abdominoplasty 2006 History of section 1978, 1985, 1990 Family History Family History Father Hypertension Acute myocardial infarction, Onset Age: 84 Patient's father is Family history of heart disease in male family member before age 55 Diabetes mellitus Heart disease Mother Family history of diabetes mellitus in first degree relative Family history of congestive heart failure, Onset Age: 84 Lupus Diabetes mellitus Depression Heart disease Sibling Acute myocardial infarction Heart disease Lupus Cerebrovascular accident Grandparent Cerebrovascular accident Grandparent Cerebrovascular accident Other Family history of lupus erythematosus Family history of type 2 diabetes mellitus Social History Social History Smoking status: Never smoker Second hand tobacco smoke exposure: Yes Alcohol intake: current Drinks per week: 3 Alcohol use details: WINE Substance use: current Substance use type: marijuana Other substance usage details: CARD FOR CBD Lack of Transportation: No Lack of Food: Never True Current Housing: I Have Housing Concerned About Future Housing: No Difficulty Paying Gas/Electric Bills: No Difficulty Paying for Meds: No Currently Unemployed: No Education: Associate Degree Difficulty w/ Childcare or Family Care: No Living arrangements: with family Occupation/Education: 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 Informed Consent: The patient's anesthetic plan and its attendant risks and benefits were discussed with the patient/family/POA. Questions were solicited and answers provided to the satisfaction of the patient/family/POA.
--- NOTE | 2024-10-22 08:49 | PM.HPGS ---
History of Present Illness History of Present Illness Consent: Risks, benefits, and alternatives have been discussed and questions answered. Patient agrees to proceed with procedure. Chief complaint: gastro-esophageal reflux disease Narrative: Santy Sethi is a 69 year old female here for first egd, h/o of cough and post nasal drip, ENT diagnosed with LPR using ppi now Review of Systems Review of Systems: All systems reviewed & are unremarkable except as noted in HPI and below PMFSH Past Medical History Medical History Need for vaccination for pneumococcus Chronic allergic bronchitis Acute bacterial bronchitis Cluster headaches Memory change Family history of skin cancer Hematuria Hypokalemia Hypokalemia Throat clearing PND (post-nasal drip) Chronic ethmoidal sinusitis Chronic sinusitis of both maxillary sinuses Congestion of nasal sinus Post-nasal drip Dyspareunia Pelvic floor dysfunction Recurrent UTI Nutritional deficiency Cough in adult Protracted bacterial bronchitis Abnormal thyroid biopsy Low vitamin D level Mixed anxiety depressive disorder Screen for colon cancer Rheumatoid arthritis Skin lesion of face Dermatitis Lesion of skin of face Anemia, unspecified Degenerative lumbar disc Elevated cholesterol Elevated vitamin B12 level Insomnia, unspecified Mixed connective tissue disease Other migraine, not intractable, without status migrainosus Scoliosis, unspecified Seronegative rheumatoid arthritis Surgical History Surgical History History of thyroidectomy S/P epidural steroid injection Hx of abdominoplasty 2006 History of section 1978, 1985, 1990 Family History Family History Father Hypertension Acute myocardial infarction, Onset Age: 84 Patient's father is Family history of heart disease in male family member before age 55 Diabetes mellitus Heart disease Mother Family history of diabetes mellitus in first degree relative Family history of congestive heart failure, Onset Age: 84 Lupus Diabetes mellitus Depression Heart disease Sibling Acute myocardial infarction Heart disease Lupus Cerebrovascular accident Grandparent Cerebrovascular accident Grandparent Cerebrovascular accident Other Family history of lupus erythematosus Family history of type 2 diabetes mellitus Social History Social History Smoking status: Never smoker Second hand tobacco smoke exposure: Yes Alcohol intake: current Drinks per week: 3 Alcohol use details: WINE Substance use: current Substance use type: marijuana Other substance usage details: CARD FOR CBD Lack of Transportation: No Lack of Food: Never True Current Housing: I Have Housing Concerned About Future Housing: No Difficulty Paying Gas/Electric Bills: No Difficulty Paying for Meds: No Currently Unemployed: No Education: Associate Degree Difficulty w/ Childcare or Family Care: No Living arrangements: with family Occupation/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: 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 Gender identity (if verbalized by the patient): Female Spiritual care concerns: No Meds Home Medications and Allergies Home Medications ?Medication ?Instructions ?Recorded ?Confirmed ?Type estradiol-norethindrone acet 1 1 tablet PO DAILY 01/27/20 10/22/24 History mg-0.5 mg tablet (Activella) hydroxychloroquine 200 mg tablet 200 mg PO BID 01/27/20 10/22/24 History hydrocodone 5 mg-acetaminophen 325 1 tablet PO Q8H PRN pain 03/18/21 10/22/24 History mg tablet cholecalciferol (vitamin D3) 50 50 mcg PO DAILY 09/16/21 10/22/24 History mcg (2,000 unit) capsule fluticasone propionate 50 2 spray intranasal DAILY #16 mL 05/01/23 10/15/24 Rx mcg/actuation nasal spray,suspension (Flonase Allergy Relief) onabotulinumtoxinA 100 unit 5 unit IM ONCE 08/17/23 10/22/24 History solution for injection (Botox) rimegepant 75 mg disintegrating 75 mg PO ONCE PRN migraine headache 04/09/24 10/15/24 History tablet (Nurtec ODT) clobetasol-emollient 0.05 % 1 applic topical .prn 05/21/24 10/15/24 History topical cream topiramate 25 mg tablet 25 mg PO DAILY 07/16/24 10/22/24 History zolpidem 5 mg tablet 5 mg PO QHS #30 tabs 09/07/24 10/22/24 Rx pantoprazole 40 mg tablet,delayed 40 mg PO BID laryngopharyngeal 09/19/24 10/22/24 Rx release reflux #60 tabs fluticasone 250 mcg-salmeterol 50 1 inh inhalation BID 10/04/24 10/22/24 History mcg/dose blistr powdr for inhalation (Wixela Inhub) cetirizine 10 mg tablet (Zyrtec) 10 mg PO DAILY PRN allergy 10/11/24 10/22/24 Rx symptoms #30 tabs trazodone 100 mg tablet 100 mg PO QHS PRN insomnia #90 tabs 10/11/24 10/22/24 Rx Allergies Allergy/AdvReac Type Severity Reaction Status Date / Time clindamycin Allergy Intermediate Nausea and Verified 10/22/24 07:56 Vomiting Sulfa (Sulfonamide Allergy Intermediate Nausea and Verified 10/22/24 07:56 Antibiotics) Vomiting Vital Signs Vital Signs - 24 hr 10/22/24 07:58 Temperature 97 F L Pulse Rate 92 Respiratory Rate 18 Blood Pressure 116/68 Pulse Oximetry 97 Oxygen Delivery Room Air Exam Const: General: comfortable and no acute distress HENMT: Face/Nose/Sinus: Normal nares present Eyes: General: appearance normal, both eyes and all related structures Neck: Neck: no JVD Resp: Auscultation: clear to auscultation bilaterally Cardio: Rate: regular rate Rhythm: regular rhythm GI: Inspection: non-distended GI Palp: Yes Soft to palpation Skin: General skin exam: normal color Neuro: General: gait normal Speech: normal speech Extrem: General: normal to inspection Psych: Mental Status: mental status grossly normal Assessment and Plan Assessment and plan (1) LPRD (laryngopharyngeal reflux disease): Code(s): K21.9 - Gastro-esophageal reflux disease without esophagitis Status: Acute Assessment and Plan: egd with bx
[2024-10-22 09:01] VITALS: BP 107/57; PULSE 76; RESP 17; O2SAT 99
[2024-10-22 09:11] VITALS: BP 105/58; PULSE 75; RESP 14; O2SAT 99
[2024-10-22 09:21] VITALS: BP 115/62; PULSE 80; RESP 20; O2SAT 100
[2024-10-22 10:05] LABS: HPYLORIRESULT Negative (Negative)
== END 2024-10-22 09:25 | disposition home or self-care (01) ==
PROVIDERS: PCP Family Medicine; Referring Provider Otolaryngology; Visit Provider Internal Medicine Gastroenterology
PROC: 0DJ08ZZ Inspection of Upper Intestinal Tract, Via Natural or Artificial Opening Endoscopic (ICD-10-PCS; CPT 43239; principal; 2024-10-22 09:00)
DX: K21.00 Gastro-esophageal reflux disease with esophagitis, without bleeding (principal); K29.50 Unspecified chronic gastritis without bleeding; J45.909 Unspecified asthma, uncomplicated; E87.6 Hypokalemia; E55.9 Vitamin D deficiency, unspecified; D64.9 Anemia, unspecified; E78.00 Pure hypercholesterolemia, unspecified; G47.00 Insomnia, unspecified; J32.2 Chronic ethmoidal sinusitis; J32.0 Chronic maxillary sinusitis; F41.8 Other specified anxiety disorders; M06.00 Rheumatoid arthritis without rheumatoid factor, unspecified site; M51.369 Other intervertebral disc degeneration, lumbar region without mention of lumbar back pain or lower extremity pain; M35.1 Other overlap syndromes; M41.9 Scoliosis, unspecified; F12.90 Cannabis use, unspecified, uncomplicated; Z79.891 Long term (current) use of opiate analgesic; Z79.51 Long term (current) use of inhaled steroids; Z98.890 Other specified postprocedural states; Z87.42 Personal history of other diseases of the female genital tract; Z84.0 Family history of diseases of the skin and subcutaneous tissue; Z82.49 Family history of ischemic heart disease and other diseases of the circulatory system
CPT/HCPCS: 43239; 87081; 88305; J2003; J2704; J7120

== ENCOUNTER 2025-04-24 14:02 | Outpatient (CLI) | payer MEDICARE, SELFPAY ==
--- NOTE | ~2025-04-24 | MM_ITS ---
EXAMINATION: MM screening génesis BI w clint HISTORY: Screening TECHNIQUE: Craniocaudal and mediolateral oblique 3-D tomosynthesis images were obtained and synthetic 2-D images were generated. CAD analysis was submitted and interpreted. COMPARISON: 12/28/2022 BREAST PARENCHYMAL COMPOSITION: The breasts are heterogeneously dense, which may obscure small masses. FINDINGS: There is no evidence of suspicious mass, calcification, or architectural distortion to suggest malignancy. There has been no suspicious interval change. IMPRESSION: 1. No mammographic evidence of malignancy. Recommend routine screening mammography in one year. BI-RADS Category 2: Benign finding(s) Reviewed, dictated and finalized at location Q. IMPRESSION: 1. No mammographic evidence of malignancy. Recommend routine screening mammogra phy in one year. BI-RADS Category 2: Benign finding(s)
== END 2025-04-24 14:03 | disposition home or self-care (01) ==
LOC: ANHFOHIMG 14:05
PROVIDERS: PCP Family Medicine; Visit Provider Obstetrics & Gynecology
DX: Z12.31 Encounter for screening mammogram for malignant neoplasm of breast (principal)
CPT/HCPCS: 77063; 77067

== ENCOUNTER 2025-07-25 11:10 | Outpatient (CLI) | payer MEDICARE, SELFPAY ==
--- NOTE | ~2025-07-25 | CT_ITS ---
CT abdomen pelvis w con INDICATION:R10.9 - Unspecified abdominal pain . COMPARISON: None. TECHNIQUE: Axial images of the abdomen and pelvis were obtained following infusion of 100 mL Isovue 300. Dose optimization technique was utilized. FINDINGS: The lung bases are clear. The liver parenchyma is unremarkable. No intrahepatic mass or ductal dilatation is evident. The gallbladder is unremarkable. The pancreas and spleen are normal in appearance. The adrenal glands are symmetric in size. The kidneys demonstrate symmetric uptake and excretion of contrast. No cystic mass is evident. There is no solid mass. There is no hydronephrosis. The stomach and bowel loops are unremarkable. The appendix is not visualized however no secondary signs of appendicitis are identified. The bladder and rectum are normal. The uterus and both adnexa are unremarkable. No free intraperitoneal fluid or air is evident. There is no significant retroperitoneal lymphadenopathy. The aorta, visceral vessels and renal arteries demonstrate normal caliber and patency. There is severe scoliosis. IMPRESSION: No acute abnormality is noted in the abdomen and pelvis. All CT scans at this facility are performed using low dose modulation techniques as appropriate to perform exam including the following: automated exposure control; use of iterative reconstruction technique; adjustment of the mA and/or kV according to patient size (this includes techniques or standardized protocols for targeted exams where dose is matched to indication/reason for exam). Reviewed, dictated and finalized at location S. TER MAINTENANCE IMPRESSION: No acute abnormality is noted in the abdomen and pelvis. All CT scans at this facility are performed using low dose modulation techniqu es as appropriate to perform exam including the following: automated exposure c ontrol; use of iterative reconstruction technique; adjustment of the mA and/or kV according to patient size (this includes techniques or standardized protocol s for targeted exams where dose is matched to indication/reason for exam).
--- OUTSIDE RECORDS SUMMARY | 2025-07-25 11:17 | XMS_ITS | Encounter Summary ---
Author Organization [facility] Address [address] [place] [address] Care Team Providers Care Supervisor Bonding Name Role Phone [facility], External Provider Primary Care Provider Robert escobar Encounter Details Date Type Department Care Team (Latest Contact Info) Description 05/10/2007 Outpatient Historical HIS [facility] Bennett, Geovanny Estevez MD [address] [facility] [address] [place] [address] Other Screening Mammogram (Primary Dx) Social History Tobacco Use Types Packs/Day Years Used Date Smoking Tobacco: Never Assessed Comments Unknown Sex and Gender Information Value Date Recorded Sex Assigned at Not on file Legal Sex Female 4:50 AM CORPORATE ANALYST Gender Identity Not on file Sexual Orientation Not on file documented as of this encounter Plan of Treatment Not on file documented as of this encounter Visit Diagnoses Diagnosis Other screening mammogram- Primary documented in this encounter Care Teams Supervisor Bonding Relationship Specialty Start Date End Date Jose J, External Provider [address] [facility] [place] [address] PCP - General 06/20/17 documented as of this encounter
--- OUTSIDE RECORDS SUMMARY | 2025-07-25 11:17 | XMS_ITS | Encounter Summary ---
Author Organization [facility] Address [address] [facility] [place] [address] Care Team Providers Care Box Lining Machine Operator Name Role Phone Brian Ibrahim MD Primary Care Provider [phone] Juan Salcido MD Primary Care Provider [phone] Encounter Details Date Type Department Care Team (Late st Contact Info) Description 07/13/[address] [facility] [address] [facility], [place] [phone] Juan Salcido MD [address] [place] [address] Social History Tobacco Use Types Packs/Day Years Used Date Smoking Tobacco: Never Assessed Comments Unknown Sex and Gender Information Value Date Recorded Sex Assigned at Not on file Legal Sex Female 3:55 PM TECHNICAL WRITER AND EDITOR Gender Identity Not on file Sexual Orientation Not on file documented as of this encounter Plan of Treatment Not on file documented as of this encounter Procedures Procedure Name Priority Date/Time Associated Diagnosis Comments DERMATOPATHOLOGY Routine 07/11/2018 12:0 0 AM TECHNICAL WRITER AND EDITOR documented in this encounter Results * DERMATOPATHOLOGY (07/11/2018 12:00 AM TECHNICAL WRITER AND EDITOR) Case Report Dermatopathology Report Case: [id number] Authorizing Provider: Juan Salcido MD Collected: 07/11/2018 12:00 AM Pathologist: Clara Carter MD Received: 07/13/2018 08:02 AM Specimen: Skin, left thigh 11:35 AM [facility] DERMATOPATHOLOGY LABORATORY Final Diagnosis Specimen A. SKIN, left thigh: BENIGN VERRUCOUS KERATOSIS (L82.1) NOT PRESENT AT SAMPLED MARGIN 11:35 AM [facility] DERMATOPATHOLOGY LABORATORY at 1135 TECHNICAL WRITER AND EDITOR Clinical History Changing lesion. Check margins. 11:35 AM [facility] DERMATOPATHOLOGY LABORATORY Gross Description Specimen A: Received is one formalin filled container labeled with the patient's name and designated left thigh. The specimen consists of a shave biopsy measuring [id number]. The margin is inked green. Jar 0. 11:35 AM [facility] DERMATOPATHOLOGY LABORATORY Microscopic Description Specimen A. SKIN, left thigh: Sections show hyperkeratosis, papillomatosis, hypergranulosis, and acanthosis. These histological findings can be seen in a verruca vulgaris or a seborrheic keratosis. This lesion is not present at the sampled margin of the specimen. 11:35 AM [facility] DERMATOPATHOLOGY LABORATORY Disclaimer An external and internal positive and negative controls are appropriate for the histochemical, immunohistochemical and immunofluorescence stain(s) in this case (if any), except where stated explicitly. The performance characteristics of the stain(s) cited in this report were developed and its performance characteristic determined by the Dermatopathology Laboratory at [facility]. These tests need not be, and therefore are not, approved by the [place] Food and Drug Administration. The tests are used for clinical purposes. Billing Codes Specimen Charges Stain Charges 33722 1 8 11:35 AM [facility] DERMATOPATHOLOGY LABORATORY Embedded Images 11:35 AM [facility] DERMATOPATHOLOGY LABORATORY Pathology/Cytolog y TISSUE SPECIMEN FROM SKIN / Unknown 07/11/2018 07/13/2018 8:02 AM [facility] us Juan Salcido MD LAB - PATHOLOGY/CYTOLOGY CRYSE NACHO Final Result DERMATOPATHOLOGY LABORATORY [facility] - Department of Dermatology [address] [place] [address], 5th Floor Lab [address] [phone] documented in this encounter Visit Diagnoses Not on filedocumented in this encounter Care Teams Box Lining Machine Operator Relationship Specialty Start Date End Date Brian Ibrahim MD [address] [place], [place] [id number] PCP - General 07/12/18 10/24/18 Juan Salcido MD [address] [place] [address] PCP - General 10/25/18 documented as of this encounter
--- OUTSIDE RECORDS SUMMARY | 2025-07-25 11:17 | XMS_ITS | Clinical Summary ---
Author Organization [facility] Address [address] [facility] [place] [address] Care Team Providers Care Oracle Database Developer Name Role Phone Juan Salcido MD Primary Care Provider [phone] Source Comments [facility],non-owned Affiliates and Associated Physician Practices is amultiple site organization consisting of ambulatory clinics and hospital sitesin [place], [place], [place] and [place]. This disclosure is being madepursuant to the Care Everywhere program and may not contain all information available regarding this patient. Last updated 18.[facility] Allergies Active Allergy Reactions Criticality Noted Date Comments Clindamycin Rash,Nausea and/or Vomiting Medium 019 Sulfa Drugs Rash Medium 10/25/2018 Medications * Be aware that medications may not be up to date on this document. Alwaysverify current medications with the patient. hydroxychloroqu ine (PLAQUENIL) 200 MG tablet Take by mouth once daily Active traZODone (DESYREL) 100 MG tablet Take 100 mg by mouth at bedtime Active estradiol-noret hindrone (ACTIVELLA) 1-0.5 MG tablet Take 1 tablet by mouth once daily Active HYDROcodone-zay taminophen (NORCO) 5-325 MG tablet Take 1 tablet [...] drink = 0.6 oz pur e alcohol) Comments No Sex and Gender Information Value Date Recorded Sex Assigned at Not on file Legal Sex Female 3:55 PM EMT I/99 Gender Identity Not on file Sexual Orientation [...] P M CDT Height 154.9 cm (5' 1) 05/12/2021 2:10 PM CDT Body Mass Index [...] COLON CA SCREENING 1957 LIPID TESTING 1955 MAMMOGRAM 1955 MEDICARE AWV 12 MONTHS 1957 HEPATITIS C SCREENING 06/22/1975 DTAP/TDAP/TD VACCINES (1 - Tdap) 1976 PNEUMOCOCCAL VACCINE 50+ (1 of 1 - PCV) 2007 ZOSTER VACCINE (1 of 2) 2007 DEPRESSION SCREENING 07/31/2024 COVID-19 VACCINE (1 - 2024-2 6 season) 2025 INFLUENZA VACCINE (#1) 2025 Respiratory Syncytial Virus (RSV) Vaccine Pt: or [...] age to complete this topic Insurance MEDICARE [facility] CARE MEDICARE [employer] SELF PAY NO INSURANCE Member Subscriber Plan / Payer (Ef fective for All Dates) Name:Fernando Santy Member ID:Not on file Relation to Subscriber:Not on file Name:FERNANDOSANTY Subscriber ID:Not on file (Home) Address: [address] [place] [id number] Payer ID:Not on file Group ID:Not on file Type:Self Pay Address: [place], [place] Care Teams Oracle Database Developer Relationship Specialty Start Date End Date Juan Salcido MD [address] [place] [address] PCP - General 10/25/18
--- OUTSIDE RECORDS SUMMARY | 2025-07-25 11:17 | XMS_ITS | Clinical Summary ---
Author Organization [facility] Address [address] [place] [address] Care Team Providers Care Scratch Finisher Name Role Phone Dana Loo ADHESIVE PRIMER Primary Care Provider [phone] Allergies Active Allergy Reactions Criticality Noted Date Comments Clindamycin Nausea and Vomiting,Rash Medium 07/06/2017 Misc. Sulfonamide Containing Compounds Rash Medium 07/06/2017 Sunburn like rash Sulfa Antibiotics Rash,Nausea and Vomiting High 10/25/2018 red skin Sulfamethoxazole-Trimet hoprim Rash Low 12/22/2022 Medications Calcium Carb-Cholecalcife rol (CALCIUM CARBONATE-VITAMIN D3 OR) Take 2 tablets by mouth daily. Active Milk Thistle 500 MG Cap Take 525 mg by mouth 2 (two) times daily. Active traZODone (DESYREL) 100 MG tablet Take 1 tablet (100 mg total) by mouth nightly at bedtime. 023 Active TURMERIC OR Take 1,000 mg by mouth daily. Active Zinc 50 MG Cap Take 50 mg by mouth daily. Active vitamin D3 (CHOLECALCIFEROL) 125 mcg Tab Take 1 tablet (5,000 Units total) by mouth daily. Active clobetasol (TEMOVATE) 0.05 % cream Apply topically as needed. 022 Active hydroxychloroquin e (PLAQUENIL) 200 MG tablet Take 1 tablet (200 mg total) by mouth 2 (two) times daily. Active aspirin-acetamino phen-caffeine (EXCEDRIN EXTRA STRENGTH) 250-250-65 MG tablet as needed. Active zolpidem (AMBIEN) 5 MG tablet Take 1 tablet (5 mg total) by mouth nightly at bedtime. 023 Active spironolactone (ALDACTONE) 100 MG tablet Take 1 tablet (100 mg total) by mouth daily. Active HYDROcodone-aceta minophen (NORCO) 5-325 MG tablet Take 1 tablet by mouth 2 (two) times daily as needed. Active Estradiol-Norethi ndrone Acet 0.5-0.1 MG Tab Take 1 tablet by mouth daily. 023 Active pantoprazole EC (PROTONIX) 20 MG tablet Take 1 tablet (20 mg total) by mouth daily. Active ibuprofen (MOTRIN) 600 MG tablet Take 1 tablet (600 mg total) by mouth as needed. 025 Active WIXELA INHUB 250-50 MCG/ACT inhaler Inhale 1 puff into the lungs 2 (two) times daily. 025 Active dexamethasone (DECADRON) 4 MG tablet Take 1 tablet (4 mg total) by mouth as needed. 025 Active cetirizine (ZYRTEC) 10 MG tablet Take 1 tablet (10 mg total) by mouth daily. 025 Active pantoprazole EC (PROTONIX) 40 MG tablet Take 1 tablet (40 mg total) by mouth daily. Active erenumab-aooe (AIMOVIG) 70 mg/mL injection (autoinjector)Ind ications:Chronic migraine w/o aura w/o status migrainosus, not intractable Inject 1 mL (70 mg total) into the skin every 30 (thirty) days. 1 mL 6 025 Active rimegepant (NURTEC) 75 MG disintegrating tabletIndications :Migraine without aura, not intractable, without status migrainosus Take 1 tablet (75 mg total) by mouth as needed. Max of 1 tablet (75 mg) in 24 hours. 8 tablet 11 025 Active rimegepant (NURTEC) 75 MG disintegrating tabletIndications :Migraine without aura, not intractable, without status migrainosus Take 1 tablet (75 mg total) by mouth as needed. Max of 1 tablet (75 mg) in 24 hours. 8 tablet 11 024 2024 Discontinued AIMOVIG 70 MG/ML injection (autoinjector)Ind ications:Chronic migraine w/o aura w/o status migrainosus, not intractable ADMINISTER 1 ML UNDER THE SKIN EVERY 30 DAYS 1 mL 6 025 2024 Discontinued(R eorder) Active Problems Problem Noted Date Diagnosed Date Chronic cystitis 07/10/2025 Overview (07/10/2025): Prevention: Self start antibiotics. UPak. Renal ultrasound 2021, cystoscopy November of 2021 Dyspareunia 07/10/2025 Microscopic hematuria 07/10/2025 Overview (07/10/2025): Cysto was normal in 11/2021. RANCHO normal in 2021. Overactive bladder 07/10/2025 Suprapubic pressure 07/10/2025 Tachycardia 07/10/2025 Acute rheumatic arthritis 03/20/2025 Cluster headaches 03/20/2025 Congestion of nasal sinus 03/20/2025 Connective tissue disease overlap syndrome 03/20 Contact dermatitis 03/20/2025 De Quervain's tenosynovitis, bilateral Elevated cholesterol 03/20/2025 Headache 03/20/2025 Hair loss 03/20/2025 Family history of skin cancer 03/20/2025 Hx of thyroid cancer 03/20/2025 Low vitamin D level 03/20/2025 Insomnia, unspecified 03/20/2025 Memory change 03/20/2025 LPRD (laryngopharyngeal reflux disease) 03/20/20 25 Nutritional deficiency 03/20/2025 Other migraine, not intractable, without status migrainosus 03/20/2025 Pelvic floor dysfunction 03/20/2025 Postnasal drip 03/20/2025 Recurrent UTI 03/20/2025 S/P epidural steroid injection 03/20/2025 Scoliosis, unspecified 03/20/2025 Seasonal allergies 03/20/2025 Seronegative rheumatoid arthritis 03/20/2025 Solar lentigo 03/20/2025 Throat clearing 03/20/2025 Skin lesion of face 03/20/2025 Degenerative disc disease, lumbar 12/26/2024 Overview (12/26/2024): Thoracic and lumbar Lumbar facet arthropathy 08/24/2023 Reflux laryngitis 04/30/2023 Overview (12/26/2024): Laryngo-pharyngeal reflux disorder Chronic migraine without aura, not intractable 0 12/22/2022 Scoliosis due to degenerativ e disease of spine in adult patient 12/19/2022 Overview (12/26/2024): 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 DELMER positive 06/12/2018 [facility] (current) use of opiate analgesic 11/28 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 18 Other idiopathic scoliosis, lumbar region 2016 Rheumatoid arthritis involvi ng both hands with negative rheumatoid factor 08/12/2013 Overview (12/26/2024): Hand fingers wrists Resolved Problems Problem Noted Date Diagnosed Date Resolved Date 13-polyvalent pneumococcal c onjugate vaccine administered 03/20/2025 03/24/2025 Abnormal iron saturation 03/20/202505/2025 Anemia, unspecified 03/20/2025 07/10/20 Anxiety 03/20/2025 07/10/2025 Benign mole 03/20/2025 07/10/2025 Chronic allergic bronchitis 03/20/2025 07/10/2025 Chest pain 03/20/2025 07/10/2025 Chronic ethmoidal sinusitis 03/20/2025 07/10/2025 Chronic sinusitis of both maxillary sinuses 03/20/2025 07/10/2025 Hematuria 03/20/2025 07/10/2025 Hypokalemia 03/20/2025 07/10/2025 Mixed anxiety depressive disorder 03/20/2025 07/10/2025 Major depressive disorder, s melinda episode, unspecified 03/20/2025 07/10/2025 Tinea versicolor 03/20/2025 07/10/2025 Thyroid nodule 05/31/2021 07/10/2025 Multiple thyroid nodules 05/13/202105/2025 Overview (12/26/2024): Added automatically from request for surgery [id number] Lupus arthritis 03/25/2019 03/20/2025 Encounters Date Type Department Care Team Description 07/17/2025 Misc Documentation [facility] - [address] [place] [phone] Inocente Hall MD 07/10/2025 9:40 AM MAP COMPILER Office Visit [facility] - [address], [address] [place] [phone] Inocente Hall MD Botox Procedure (Chronic migraine) 07/10/2025 Travel 06/19/[address] [facility] - [address], [address] [place] [phone] Inocente Hall MD from Last 3 Months Immunizations Immunization Administration Dates Next Due Influenza (Generic) 06/04/2020,05/10/2017 Influenza Adult (Generic) 05/23/2022,,05/23/2019,2017 PFIZER COVID-19 (ORIGINAL FORMULATION, PURPLE CAP) mRNA, LNP-S, PF, 30 MCG/0.3 ML DOSE 06/12/2021 Pneumococcal (Prevnar 13) 09/16/2021 Social History Tobacco Use Types Packs/Day Years Used Date Smoking Tobacco: Never Smokeless Tobacco: Never Tobacco Cessation:Counseling Given: Not Answered Alcohol Use Standard Drinks/Week Comments Yes 0 (1 standard drink = 0.6 oz pur e alcohol) PHQ-2 Answer Date Recorded Patient Health Questionnaire-2 Score 0 12/26/2024 Comments No Sex and Gender Information Value Date Recorded Sex Assigned at Female 03/26/2024 12:57 PM CDT Legal Sex Female 2:37 PM CDT Gender Identity Female 03/26/2024 12:57 PM CDT Sexual Orientation Not on file Last Filed Vital Signs Vital Sign Reading Time Taken Comments Blood Pressure 102/66 07/10/2025 9:59 AM MAP COMPILER Pulse 98 07/10/2025 9:59 AM MAP COMPILER Temperature 36.7 C (98.1 F) 03/20/2025 10:04 AM CDT Respiratory Rate 16 07/10/2025 9:59 AM MAP COMPILER Oxygen Saturation 97% 07/10/2025 9:59 AM MAP COMPILER Inhaled Oxygen Concentration - - Weight 50.8 kg (112 lb) 07/10/2025 9:59 AM MAP COMPILER Height 154.9 cm (5' 1) 07/10/2025 9:59 AM MAP COMPILER Body Mass Index 21.16 07/10/2025 9:59 AM MAP COMPILER Plan of Treatment Upcoming Encounters Date Type Department Care Team (Late st Contact Info) Description 12/23/2025 9:40 AM CDT Office Visit [facility] - [facility] [address] [facility], [address] [place] [address] Inocente Hall MD [address] [place] [address] Health Maintenance Due Date Last Done Comments Colorectal Cancer Screening Colonoscopy (10 Years) 1957 Hepatitis C 1975 DTaP, Tdap and Td Vaccines (1 - Tdap) 1976 Mammogram Screening 1997 Zoster Vaccines (1 of 2) 2007 Annual Medicare Wellness Visit 2022 Dexa Scan (General) 2022 COVID-19 Vaccine ( season) 2025 05/23/2022, 06/12/2021, 10/06/2020 Influenza Adult (#1) 2025 05/28/2024, 05/23/2022, 05/24/2021, Additional history exists RSV Immunization or 60+ Years Completed 05/09/2023 Pneumococcal Vaccine: 50+ Years Completed 08/17/2023, 09/16/2021 PHQ-2 (Physician Lime) Completed 12/26/2024 Hepatitis A Vaccines Aged Out No long er eligible based on patient's age to complete this topic Meningococcal B Vaccine Aged Out No l onger eligible based on patient's age to complete this topic Meningococcal Vaccine Aged Out No giuliana maria del rosario eligible based on patient's age to complete this topic RSV Immunizations Under 20 Months Aged Out No longer eligible based on patient's age to complete this topic Insurance MEDICARE [facility] Care Teams Scratch Finisher Relationship Specialty Start Date End Date Dana Loo NP [address] [place] [address] PCP - General Nurse Practitioner Family 11/14/22
--- OUTSIDE RECORDS SUMMARY | 2025-07-25 11:17 | XMS_ITS | Clinical Summary ---
Author Organization [facility] Address [address] [place] [address] Phone Care Team Providers Care Operational Meteorologist Name Role Phone [facility], External Provider Primary Care Provider U navailable Family History Medical History Relation Name Comments Breast Cancer Maternal Aunt Ovarian Cancer Neg Hx Relation Name Status Comments Maternal Aunt Social History Tobacco Use Types Packs/Day Years Used Date Smoking Tobacco: Never Assessed Comments Unknown Sex and Gender Information Value Date Recorded Sex Assigned at Not on file Legal Sex Female 4:50 AM SODIUM METHYLATE OPERATOR Gender Identity Not on file Sexual [...] 05/14/2008 OSTEOPOROSIS SCREENING 2022 INFLUENZA VACCINE (#1) 2025 RSV VACCINE (60+ or ) (1 - 1-dose 75+ series) 2032 Procedures Procedure Name Priority Date/Time Associated Diagnosis Comments MAMMO SCREEN BILAT W OR WO CAD Routine 06/07/2010 2:36 PM SODIUM METHYLATE OPERATOR Other screening mammogram from Last 3 Months or Most Recently Relevant to Health Maintenance Results * MAMMO DIGITAL SCREEN BILAT (06/07/2010 2:36 PM SODIUM METHYLATE OPERATOR) Anatomical Region Laterality Modality Breast Bilateral Mammography Narrative 06/08/2010 9:32 AM SODIUM METHYLATE OPERATOR DIGITAL SCREENING MAMMOGRAM WITH COMPUTER-ASSISTED DIAGNOSIS 06/07/2010 [...] BCBS BLUE ACCESS/TRUE BLUE PPO Care Teams Operational Meteorologist Relationship Specialty Start Date End Date [facility], External Provider [address] [place] [address] PCP - General 06/20/17
--- OUTSIDE RECORDS SUMMARY | 2025-07-25 11:17 | XMS_ITS | Encounter Summary ---
Author Organization [facility] Address [address] [place] [address] Care Team Providers Care Downstairs Maid Name Role Phone [facility], External Provider Primary Care Provider Robert escobar Encounter Details Date Type Department Care Team (Latest Contact Info) Description 03/31/2006 [facility], Geovanny Estevez MD [address] [facility] [address] [place] [address] Other Screening Mammogram (Primary Dx) Social History Tobacco Use Types Packs/Day Years Used Date Smoking Tobacco: Never Assessed Comments Unknown Sex and Gender Information Value Date Recorded Sex Assigned at Not on file Legal Sex Female 4:50 AM GRANITE COUNTERTOP INSTALLER Gender Identity Not on file Sexual Orientation Not on file documented as of this encounter Plan of Treatment Not on file documented as of this encounter Visit Diagnoses Diagnosis Other screening mammogram- Primary documented in this encounter Care Teams Downstairs Maid Relationship Specialty Start Date End Date Jose J, External Provider [address] [facility] [place] [address] PCP - General 06/20/17 documented as of this encounter
--- OUTSIDE RECORDS SUMMARY | 2025-07-25 11:17 | XMS_ITS | Encounter Summary ---
Author Organization [facility] Address [address] [place] [address] Care Team Providers Care Towel Sorter Name Role Phone Juan Salcido MD Primary Care Provider [phone] Sung Forrest RN Unavailable Unavailabl e Nathalia Julian MD Unavailable Geo Tellez MD Unavailable [phone] Encounter Details Date Type Department Care Team (Late st Contact Info) Description 07/14/2023 Telephone [facility] [address] [place] [address] Jaimie Xie, RN Social History Tobacco Use [...] on file Legal Sex Female 9:40 AM SINGLE ENDING MACHINE OPERATOR Gender Identity Not on file [...] on filedocumented in this encounter Care Teams Towel Sorter Relationship Specialty Start Date End Date Juan Salcido MD PCP - General 11/21/16 Sung Forrest, RN Registered Nurse 07/06/17 [place] [address] [facility] [address] [place] [address] Consulting Physician Rheumatology 01/05/18 Geo Tellez MD [address] [place] [address] [address] [place] [address] Consulting Physician Anesthesiology 03/06/24 documented as of this encounter
--- OUTSIDE RECORDS SUMMARY | 2025-07-25 11:17 | XMS_ITS ---
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 Past Treatment and Therapy Plans Resolved Problems Problem Noted Date Diagnosed Date [...] (12/26/2024): Added automatically from request for surgery [id number] Lupus arthritis 03/25/2019 03/20/2025
--- OUTSIDE RECORDS SUMMARY | 2025-07-25 11:17 | XMS_ITS | Encounter Summary ---
Author Organization [facility] Address [address] [place] [address] Care Team Providers Care Narcotics Investigator Name Role Phone [facility], External Provider Primary Care Provider Robert escobar Encounter Details Date Type Department Care Team (Latest Contact Info) Description 02/25/2005 [facility] Geovanny Estevez [facility] [address] [place] [address] SCREENING MAMM-MAILG NEOPL-OTHER (Primary Dx) Social History Tobacco Use Types Packs/Day Years Used Date Smoking Tobacco: Never Assessed Comments Unknown Sex and Gender Information Value Date Recorded Sex Assigned at Not on file Legal Sex Female 4:50 AM ACCOUNTING MACHINE SERVICER Gender Identity Not on file Sexual Orientation Not on file documented as of this encounter Plan of Treatment Not on file documented as of this encounter Visit Diagnoses Diagnosis Other screening mammogram- Primary documented in this encounter Care Teams Narcotics Investigator Relationship Specialty Start Date End Date Jose J, External Provider [address] [facility] [place] [address] PCP - General 06/20/17 documented as of this encounter
--- OUTSIDE RECORDS SUMMARY | 2025-07-25 11:17 | XMS_ITS | Encounter Summary ---
Author Organization [facility] Address [address] [place] [address] Care Team Providers Care Insurance Claims Clerk Name Role Phone [facility], External Provider Primary Care Provider U luz Encounter Details Date Type Department Care Team (Latest Contact Info) Description 05/14/2008 Outpatient Historical HIS [facility] Geovanny Galicia MD [address] [place] [id number] Other Screening Mammogram Social History Tobacco Use Types Packs/Day Years Used Date Smoking Tobacco: Never Assessed Comments Unknown Sex and Gender Information Value Date Recorded Sex Assigned at Not on file Legal Sex Female 4:50 AM SHUTTLECOCK ASSEMBLER Gender Identity Not on file Sexual Orientation [...] AM CDT Narrative 05/14/2008 2:31 PM CDT [address] [address] Admit Date: 05/14/2008 SANTY KING Sex: F Admit Prov: GEOVANNY BENNETT Date: 1955 Primary Care Prov: RICHARD WHELAN CMRN: [id number] Room: KAREN SSN: [id number] IMAGING SERVICES Ordering Prov: GEOVANNY BENNETT Accession Number: [id number] Interpretation BILATERAL DIGITAL MAMMOGRAM WITH COMPUTER-ASSISTED DIAGNOSIS [...] CO Procedure Note Bud Chanel - 05/14/2008 [facility] [address] [place], [place] [address] Admit Date: 05/14/2008 SANTY KING Sex: F Admit Prov: GEOVANNY BENNETT Date:1955 Primary Care Prov: RICHARD WHELAN CMRN: [id number] Room: KAREN SSN: [id number] IMAGING SERVICES Ordering Prov: GEOVANNY BENNETT Interpretation [...] mammogram documented in this encounter Care Teams Insurance Claims Clerk Relationship Specialty Start Date End Date [facility], External Provider [address] [place] [address] PCP - General 06/20/17 documented as of this encounter
--- OUTSIDE RECORDS SUMMARY | 2025-07-25 11:17 | XMS_ITS ---
Author Organization [facility] Address [address] [place] [address] Care Team Providers Care Disability Insurance Hearing Officer Name Role Phone Juan Salcido MD Primary Care Provider [phone] Sung Forrest RN Unavailable Unavailabl Nathalia Rodriguez MD Unavailable Geo Tellez MD Unavailable [phone] Active Problems Problem Noted Date Diagnosed Date Lumbar facet arthropathy 08/24/2023 Chronic migraine without aura, not intractable 0 12/22/2022 Papillary thyroid carcinoma 06/29/2022 Thyroid nodule 05/31/2021 Multiple thyroid nodules 05/13/2021 Overview (06/01/2021): Added automatically from request for surgery [id number] Lupus arthritis 03/25/2019 DELMER positive 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 However, her testing on more sensitive and [...] the vimovo. Will also send [facility]aid [facility] as she says this also helps. 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 However, these were negative on the AVISE. Discussed we will monitor her labs for changes in her serologies. Follow up in 8 weeks, sooner if needed Pt seen w/ Dr. Julian Assessment & Plan (11/10/2017 12:12 PM CDT): 62 yof w/ multiple joint pain x 2 years and abn labs. 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
--- OUTSIDE RECORDS SUMMARY | 2025-07-25 11:17 | XMS_ITS | Clinical Summary ---
Author Organization [facility] Address [address] [place] [address] Care Team Providers Care Solar Manager Name Role Phone Juan Salcdio MD Primary Care Provider [phone] Sung Forrest RN Unavailable Unavailabl e Nathalia Julian MD Unavailable Geo Tellez MD Unavailable [phone] Allergies Active Allergy Reactions Criticality Noted Date Comments Clindamycin Nausea & Vomiting Low 07/06/2017 Sulfa (Sulfonamide Antibiotics) Rash Medium 07/06/2017 Sunburn like rash Medications traZODone (DESYREL) 100 mg tabletIndication s:to help sleep Take 1 tablet (100 mg total) by mouth nightly Active hydroxychloroqui ne (PLAQUENIL) 200 mg tablet TAKE 1 TABLET BY MOUTH TWICE DAILY 60 tablet 8 Active clobetasoL (TEMOVATE) 0.05 % creamIndications :Rash on knees/elbows Apply 1 application topically 3 (three) times a day as needed 1 Active zinc 50 mg tablet Take 50 [...] tablets (50 mg total) by mouth daily 2 Active spironolactone (ALDACTONE) 100 mg tablet Take 1 tablet (100 mg total) by mouth daily 3 Active Aimovig Autoinjector 70 mg/mL auto-injector subcutaneous injection ADMINISTER 1 ML UNDER THE SKIN EVERY [address] (PROTONIX) 20 mg EC tablet TAKE 1 TABLET BY MOUTH TWICE DAILY ON AN EMPTY STOMACH. DO NOT EAT OR DRINK ANYTHING FOR 20 MINUTES AFTER EACH DOSE 5 Active Wixela Inhub 250-50 mcg/dose diskus inhaler USE 1 INHALATION BY MOUTH TWICE DAILY 5 Active ibuprofen (ADVIL,MOTRIN) 600 mg tablet TAKE 1 TABLET BY MOUTH EVERY 6 TO 8 HOURS NEEDED 5 Active zolpidem (AMBIEN) 5 mg tablet Take 1 tablet (5 mg total) by mouth nightly at bedtime Active estradiol-noreth indrone (ACTIVELLA) 0.5-0.1 mg per tablet Take 1 tablet by mouth daily 5 Active HYDROcodone-acet aminophen (NORCO) 5-325 mg per tabletIndication s:Pain Take 1 tablet by mouth 3 (three) times a day as needed for pain 65 tablet 5 Active HYDROcodone-acet aminophen (NORCO) 5-325 mg per tabletIndication s:Pain Take 1 tablet by mouth 2 (two) times a day as needed for pain 60 tablet 5 Active HYDROcodone-acet aminophen (NORCO) 5-325 mg per tabletIndication s:Pain Take 1 tablet by mouth 2 (two) times a day as needed for pain 60 tablet 5 08/12/19 26 Active HYDROcodone-acet aminophen (NORCO) 5-325 mg per tabletIndication s:Pain Take 1 tablet by mouth 2 (two) times a day as needed for pain 60 tablet 6 09/11/19 Active Active Problems Problem Noted Date Diagnosed Date Lumbar facet arthropathy 08/24/2023 Chronic migraine without aura, not intractable 0 12/22/2022 Papillary thyroid carcinoma 06/29/2022 Thyroid nodule 05/31/2021 Multiple thyroid nodules 05/13/2021 Overview (06/01/2021): Added automatically from request for surgery [id number] 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 However, her testing on more sensitive and [...] the vimovo. Will also send pennsaid to [facility] as she says this also helps. 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 However, these were negative on the AVISE. Discussed we will monitor her labs for changes in her serologies. Follow up in 8 weeks, sooner if needed Pt seen w/ Dr. Julian Assessment & Plan (11/10/2017 12:12 PM CDT): 62 yof w/ multiple joint pain x 2 years and abn labs. 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 She admits to fatigue, dry eyes, dry [...] Encounters Date Type Department Care Team Description 05/29/2025 11:11 AM CDT - 05/29/2025 11:59 PM CDT Hospital Encounter [facility] [address] [place] [address] A, Chris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 Gender Identity Not on file Sexual Orientation Not on file Last Filed Vital Signs Vital Sign Reading Time Taken Comments Blood Pressure 124/75 05/29/2025 11:39 AM CDT Pulse 88 05/29/2025 11:39 AM CDT Temperature 36.6 C (97.9 F) 11/06/2024 10:28 AM CDT Respiratory Rate 18 05/29/2025 11:39 AM CDT Oxygen Saturation 97% 05/29/2025 11:39 AM CDT Inhaled Oxygen Concentration - - Weight 49 kg (108 lb) 07/21/2023 8:06 AM 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 Height 154.9 cm (5' 1) 07/21/2023 8:06 AM 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 Body Mass Index 20.41 07/21/2023 8:06 AM 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 Plan of Treatment Health Maintenance Due Date Last Done Comments Breast Cancer Screening-Mammogram 1955 Colon Cancer Screening-Colonoscopy 1955 Hepatitis C Screening 1955 Osteoporosis Screening-Bone Density Scan 1955 DTaP/Tdap/Td Vaccine (1 - Tdap) 1968 Hepatitis B Screening 1975 Zoster Vaccine (1 of 2) 1976 Pneumococcal vaccine 65+ (2 of 2 - PPSV23, PCV20, or PCV21) 11/11/2021 09/16/2021 Well Visit 65+ 2022 Fall Risk Assessment 07/21/2024 07/21/2023 Covid-19 Vaccine (3 - 2024-2 6 season) 2025 06/12/2021, 10/06/2020 Influenza Vaccine (#1) 2025 , 05/23/2022, 05/24/2021, Additional history exists Depression Screening 05/29/2026 05/29/2025, 05/29/2025, 03/04/2025, Additional history exists Goals Goal Patient Goal Type Associated Problems Recent Progress Patient-Stated? Author -Pain Behavioral Health Improving( 10:42 AM CDT) No Sung Forrest, RN Note: Describe how unrelieved pain will be managed -Pain Behavioral Health Improving( 10:42 AM CDT) No Sung Forrest, RN Note: Pt would like to exercise on a regular basis with minimal pain and fatigue. Insurance [facility] MEDICARE [facility] CHOICE PLUS MEDICARE MEDICARE MEDICARE [facility] MEDICARE [facility] [place] [phone] Advance Directives For more information, please contact: [phone] Documents on File Type Date Recorded Patient Manager Loss Prevention Expl anation ADVANCE DIRECTIVE 06/18/2021 10:19 AM [facility] Care Teams Solar Manager Relationship Specialty Start Date End Date Juan Salcido MD PCP - General 11/21/16 Sung Forrest, RN Registered Nurse 07/06/17 [place] [id number] [address] [facility] [address] [place] [address] Consulting Physician Rheumatology 01/05/18 Geo Tellez MD [address] [place] [address] [address] [place] [address] Consulting Physician Anesthesiology 03/06/24
== END 2025-07-25 11:11 | disposition home or self-care (01) ==
PROVIDERS: PCP Family Medicine
DX: R10.9 Unspecified abdominal pain (principal)
CPT/HCPCS: 74177; Q9967